=== PATIENT | female | born 1995 | race Caucasian/White ===

== ENCOUNTER 2016-04-21 19:33 | Emergency (ER) | payer BC, OTHER ==
[2016-04-21 19:43] VITALS: BP 102/66; PULSE 96; TEMP 98.7; BMI 17.5
[2016-04-21 20:11] LABS: URINE APPEARANCE SLCLOUDY; URINE BILIRUBIN NEGATIVE (NEGATIVE); URINE BLOOD 1+ (NEGATIVE); URINE COLOR YELLOW; URINE GLUCOSE (UA) NEGATIVE (NEGATIVE); URINE KETONE TRACE (NEGATIVE); URINE LEUK ESTERASE 1+ (NEGATIVE); URINE NITRITE POSITIVE (NEGATIVE); URINE PROTEIN 1+ (NEGATIVE); URINE UROBILINOGEN NEGATIVE E.U./dl (0.2-1.0)
[2016-04-21 20:18] LABS: URINE BACTERIA MODERATE /hpf (NONE SEEN); URINE MUCUS FEW; URINE RBC 27 /hpf (0-3); URINE WBC 104 /hpf (3-5)
--- NOTE | 2016-04-21 20:18 | PDOC ---
History of Present Illness <Elli Krueger Clare - Last Filed: 04/21/16 20:45> - General History Source: Patient Exam Limitations: No Limitations - History of Present Illness Initial Comments: 04/21/16 21:11 The patient is a 21 year old female, with no significant past medical history, who presents to the emergency department with intermittent suprapubic pain since 2013, which was when the patient delivered via . She states that when she experiences the pain, it is located along her incision scar. The patient denies fever, chills, nausea, vomiting, diarrhea, constipation or dysuria. Allergies: None reported. Past Surgical History: Hernia Repair, . Social History: Non smoker. Denies alcohol or drug use. PCP: Dr. Roach <Bree Brown - Last Filed: 04/21/16 21:18> - General Chief Complaint: Pain, Acute Stated Complaint: ABDOMINAL PAIN Time Seen by Provider: 04/21/16 20:16 Past History - Past Medical History Asthma: No Cancer: No Cardiac Disorders: No Diabetes: No HTN: No Seizures: No Thyroid Disease: No - Surgical History Abdominal Surgery: Yes (HERNIA REPAIR) - Immunization History Immunization Up to Date: Yes - Psycho/Social/Smoking Cessation Hx Anxiety: No Suicidal Ideation: No Smoking History: Never smoked Have you smoked in the past 12 months: No Information on smoking cessation initiated: No Hx Alcohol Use: No Drug/Substance Use Hx: No Substance Use Type: None Hx Substance Use Treatment: No <Elli Krueger Clare - Last Filed: 04/21/16 20:45> <Bree Brown - Last Filed: 04/21/16 21:18> - Past Medical History Allergies/Adverse Reactions: Allergies Allergy/AdvReac Type Severity Reaction Status Date / Time No Known Allergies Allergy Verified 04/21/16 19:40 Home Medications: Ambulatory Orders Cephalexin Monohydrate [Keflex -] 500 mg PO Q6H #20 capsule 04/21/16 Ibuprofen [Motrin -] 400 mg PO TID PRN #21 tablet 04/21/16 Review of Systems - Review of Systems Able to Perform ROS?: Yes Comments:: 04/21/16 21:12 CONSTITUTIONAL: Absent: fever, no chills, no fatigue EYES: Absent: visual changes ENT: Absent: ear pain, no sore throat CARDIOVASCULAR: Absent: chest pain, no palpitations RESPIRATORY: Absent: cough, no SOB GI: Present: +Suprapubic pain Absent: no nausea, no vomiting, no constipation, no diarrhea GENITOURINARY: Absent: dysuria, no frequency, no hematuria MUSCULOSKELETAL: Absent: back pain, no arthralgia, no myalgia SKIN: Absent: rash NEURO: Absent: headache <Bree Brown - Last Filed: 04/21/16 21:18> *Physical Exam - Vital Signs Last Vital Signs Temp Pulse Resp BP Pulse Ox 98.7 F 96 H 20 102/66 100 04/21/16 19:41 04/21/16 19:41 04/21/16 19:41 04/21/16 19:41 04/21/16 19:56 <Elli Krueger - Last Filed: 04/21/16 20:45> - Vital Signs Last Vital Signs Temp Pulse Resp BP Pulse Ox 98.7 F 96 H 20 102/66 100 04/21/16 19:41 04/21/16 19:41 04/21/16 19:41 04/21/16 19:41 04/21/16 19:56 - Physical Exam Comments: 04/21/16 21:13 GENERAL: Well-appearing, well-nourished. No apparent distress. HEENT: Normocephalic, atraumatic. PERRL, EOM intact. CARDIOVASCULAR: Regular rate and rhythm. Normal S1, S2. PULMONARY: Lungs clear to auscultation bilaterally. No wheezing, rales or rhonchi. ABDOMEN: Soft, non-distended, non-tender. No rebound or guarding. EXTREMITIES: Normal ROM in all four extremities. No gross deformities. SKIN: incision site is well healed. No seroma. No erythema. No induration. No masses or thickness. Warm, dry. No rash. NEUROLOGICAL: No focal neurological deficits. Moving all extremities purposefully. <Bree Brown - Last Filed: 04/21/16 21:18> ED Treatment Course - ADDITIONAL ORDERS Additional order review: Laboratory Results 04/21/16 20:00 Urine Color Yellow Urine Appearance Slcloudy Urine pH 9.0 H D Ur Specific [place] 1.023 Urine Protein 1+ H Urine Glucose (UA) Negative Urine Ketones Trace H Urine Blood 1+ H Urine Nitrite Positive Urine Bilirubin Negative Urine Urobilinogen Negative Ur Leukocyte Esterase 1+ H <Elli Krueger - Last Filed: 04/21/16 20:45> - ADDITIONAL ORDERS Additional order review: Laboratory Results 04/21/16 20:00 Urine Color Yellow Urine Appearance Slcloudy Urine pH 9.0 H D Ur Specific [place] 1.023 Urine Protein 1+ H Urine Glucose (UA) Negative Urine Ketones Trace H Urine Blood 1+ H Urine Nitrite Positive Urine Bilirubin Negative Urine Urobilinogen Negative Ur Leukocyte Esterase 1+ H Urine RBC 27 Urine WBC 104 Ur Epithelial Cells Rare Urine Bacteria Moderate Urine Mucus Few Urine HCG, Qual Negative - Medications Given in the ED: ED Medications Discontinued Medications Generic Name Dose Route Start Last Admin Trade Name Freq PRN Reason Stop Dose Admin Cephalexin HCl 500 mg 04/21/16 20:42 04/21/16 20:50 Keflex - PO 04/21/16 20:43 500 mg ONCE ONE Administration Ibuprofen 400 mg 04/21/16 20:47 04/21/16 20:50 Motrin - PO 04/21/16 20:48 400 mg ONCE ONE Administration <Bree Brown - Last Filed: 04/21/16 21:18> *DC/Admit/Observation/Transfer <Elli Krueger - Last Filed: 04/21/16 20:45> - Attestations Scribe Attestion: 04/21/16 20:51 Documentation prepared by Bree Brown, acting as medical billing representative for Elli Krueger MD. <Bree Brown - Last Filed: 04/21/16 21:18> Diagnosis at time of Disposition: UTI (urinary tract infection) Qualifiers: Urinary tract infection type: acute cystitis Hematuria presence: without hematuria Qualified Code(s): N30.00 - Acute cystitis without hematuria - Discharge Dispostion Disposition: HOME Condition at time of disposition: Stable - Prescriptions Prescriptions: Cephalexin Monohydrate [Keflex -] 500 mg PO Q6H #20 capsule Ibuprofen [Motrin -] 400 mg PO TID PRN #21 tablet PRN Reason: Pain - Referrals Referrals: Pina Roach MD [Primary Care Provider] - - Patient Instructions Printed Discharge Instructions: DI for Urinary Tract Infection (UTI) Additional Instructions: please steel pickler your antibiotics at [facility] please 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
[2016-04-21] MEDS ORDERED: CEPHALEXIN MONOHYDRATE 500 MG CAPSULE (UD) PO ONE (20:42)
[2016-04-21] MEDS ORDERED: IBUPROFEN 400 MG TABLET (FP) PO ONE ×2 (20:47→20:52)
[2016-04-21] MEDS ORDERED: CEPHALEXIN MONOHYDRATE 250 MG CAPSULE (FP) ONE (20:52)
== END 2016-04-21 20:58 | disposition home or self-care (01) ==
LOC: JER 19:33
DX: N30.00 Acute cystitis without hematuria (principal)
CPT/HCPCS: 81003; 81015; 84703; 99283-25

== ENCOUNTER 2016-05-30 20:17 | Emergency (ER) | payer OTHER ==
[2016-05-30 20:23] VITALS: BP 126/63; PULSE 76; TEMP 97.9; BMI 17.6
[2016-05-30] MEDS ORDERED: OXYCODONE/APAP 5/325MG COMBO TABLET ONE (20:31)
[2016-05-30] MEDS ORDERED: KETOROLAC TROMETHAMINE 60 MG/2 ML VIAL ONE (20:31)
[2016-05-30] MEDS ORDERED: KETOROLAC TROMETHAMINE 30 MG/1 ML VIAL ONE (20:32)
[2016-05-30] MEDS ORDERED: KETOROLAC TROMETHAMINE 60 MG/2 ML VIAL IM ONE (20:34)
[2016-05-30] MEDS ORDERED: OXYCODONE/APAP 5/325MG COMBO TABLET PO ONE (20:34)
--- NOTE | 2016-05-30 20:46 | PDOC ---
History of Present Illness - General Chief Complaint: Toothache Stated Complaint: TOOTHACHE Time Seen by Provider: 05/30/16 20:34 History Source: Patient Exam Limitations: No Limitations - History of Present Illness Initial Comments: 05/30/16 20:43 Patient with extensive endodontal work with braces, multiple teeth needing extraction for realignment. Patient had upper right first molar extracted today and given only Motrin for pain relief. Patient has mildly swollen face, and severe pain to same site. No fevers, no evidence of infection. Timing/Duration: unsure, 4-6 hours Severity: moderate, severe Associated Symptoms: reports: denies symptoms Past History - Travel Traveled outside of the country in the last 30 days: No Close contact w/someone who was outside of country & ill: No - Past Medical History Allergies/Adverse Reactions: Allergies Allergy/AdvReac Type Severity Reaction Status Date / Time No Known Allergies Allergy Verified 05/30/16 20:20 Home Medications: Ambulatory Orders Cephalexin Monohydrate [Keflex -] 500 mg PO Q6H #20 capsule 04/21/16 Ibuprofen [Motrin -] 400 mg PO TID PRN #21 tablet 04/21/16 Oxycodone HCl/Acetaminophen [Percocet 5-325 mg Tablet -] 1 - 2 tab PO Q4H PRN # 6 tablet MDD 4 05/30/16 Asthma: No Cancer: No Cardiac Disorders: No Diabetes: No HTN: No Seizures: No Thyroid Disease: No - Surgical History Abdominal Surgery: Yes (HERNIA REPAIR) - Immunization History Immunization Up to Date: Yes - Psycho/Social/Smoking Cessation Hx Anxiety: No Suicidal Ideation: No Smoking History: Never smoked Have you smoked in the past 12 months: No Number of Cigarettes Smoked Daily: 0 Information on smoking cessation initiated: No Hx Alcohol Use: No Drug/Substance Use Hx: No Substance Use Type: None Hx Substance Use Treatment: No Review of Systems - Review of Systems Able to Perform ROS?: Yes Is the patient limited Solomon Islander proficient: Yes Constitutional: Yes: Symptoms Reported, See HPI, Malaise. No: Fever HEENTM: Yes: Symptoms Reported, See HPI, Mouth Pain, Dental Problems, Mouth Swelling Respiratory: No: Symptoms reported Cardiac (ROS): No: Symptoms Reported Integumentary: No: Symptoms Reported Neurological: Yes: Symptoms reported, See HPI, Headache All Other Systems: Reviewed and Negative *Physical Exam - Vital Signs Last Vital Signs Temp Pulse Resp BP Pulse Ox 97.9 F 76 14 126/63 99 05/30/16 20:20 05/30/16 20:20 05/30/16 20:20 05/30/16 20:20 05/30/16 20:20 - Physical Exam General Appearance: Yes: Nourished, Appropriately Dressed, Apparent Distress, Mild Distress, Moderate Distress HEENT: positive: KATHRINE, Normal ENT Inspection, TMs Normal, Pharynx Normal, Other (right upper molar extraction with clots, no evidence of abscess, no active bleeding, has full range of motion of jaw) Neck: positive: Supple Respiratory/Chest: positive: Lungs Clear Gastrointestinal/Abdominal: positive: Soft Extremity: positive: Normal Capillary Refill, Normal Inspection Integumentary: positive: Normal Color Neurologic: positive: pulp cooker II-XII NML intact, Fully Oriented, Alert, Normal Mood/ Affect, Normal Response, Motor Strength / ED Treatment Course - Medications Given in the ED: ED Medications Discontinued Medications Generic Name Dose Route Start Last Admin Trade Name Tristenq PRN Reason Stop Dose Admin Ketorolac Tromethamine 60 mg 05/30/16 20:34 05/30/16 20:36 Toradol Injection - IM 05/30/16 20:35 60 mg ONCE ONE Administration Oxycodone/Acetaminophen 2 combo 05/30/16 20:34 05/30/16 20:36 Percocet 5/325 - PO 05/30/16 20:35 2 combo ONCE ONE Administration Medical Decision Making - Medical Decision Making 05/30/16 20:45 Status post dental extraction, given dose of IM Toradol 60 mg and provided 2 Percocet tablets. 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 instructor in economics *DC/Admit/Observation/Transfer Diagnosis at time of Disposition: Pain, dental - Discharge Dispostion Disposition: HOME Condition at time of disposition: Stable Admit: No - Prescriptions Prescriptions: Oxycodone HCl/Acetaminophen [Percocet 5-325 mg Tablet -] 1 - 2 tab PO Q4H PRN # 6 tablet MDD 4 PRN Reason: Pain - Patient Instructions Printed Discharge Instructions: DI for Dental Pain Additional Instructions: Rest, drink lots of fluids: Teas, water, soups Saltwater gargles/ keep mouth clean and rinse after each meal May use wet teabag for pain relief to area May use Orajel for pain relief Avoid hard chewing foods, stick to ice cream, Jell-O, yogurt etc. Tylenol or Motrin for fever and pain Complete all medication as prescribed May use one or 2 tablets of Percocet for severe pain Seek dental appointment as soon as possible for evaluation of dental injury/pain Followup with private physician in one to 2 days as needed Return to emergency department for worsened symptoms, fevers, swelling to face or worsened pain - Post Discharge Activity Work/School Note: Back to Work
== END 2016-05-30 20:46 | disposition home or self-care (01) ==
LOC: JERFT 20:17
PROC: 3E0233Z Introduction of Anti-inflammatory into Muscle, Percutaneous Approach (ICD-10-PCS; principal; 2016-05-30)
DX: K08.89 Other specified disorders of teeth and supporting structures (principal)
CPT/HCPCS: 99281-25

== ENCOUNTER 2017-01-30 07:10 | Emergency (ER) | payer OTHER ==
[2017-01-30 07:38] VITALS: BP 103/60; PULSE 80; TEMP 98.5; BMI 18.1
--- NOTE | 2017-01-30 08:03 | PDOC ---
History of Present Illness - General Chief Complaint: Pain, Acute Stated Complaint: STOMACH PAIN Time Seen by Provider: 01/30/17 08:01 History Source: Patient Exam Limitations: No Limitations - History of Present Illness Initial Comments: 01/30/17 08:02 Patient is a 21 year old female with history of abdominal pain following c- section in 2013 presenting with lower abdominal pain for one day. Patient was woken from her sleep this morning with 8/10 crampy lower abdominal pain and nausea. The pain did not migrate, does not radiate and was not relieved with Motrin taken an hour before coming to the emergency department. Pain is worse when sitting and slightly relieved when lying down. Patient had similar symptoms several times since her . The last was 10 months ago when she had a negative workup for an appendicitis. Patient endorses difficulty with wound healing after her including dehiscence and abnormal scaring. Patient denies fever, chills, recent illness, sore throat, shortness of breath, chest pain, vomiting, diarrhea, constipation, dysurea, vaginal discharge, rashes and bruises. Denies recent travel and endorses sick contacts. Last meal was 8pm last night and last bowel movement was last night and normal. Patient is sexually active. LMP was 01/08 and patient is regular between the 25 and 28. Patient does not take OCP and cannot rule out . Denies amoking, EtoH and illicit drug use. PCP Dr. Roach Past History - Past Medical History Allergies/Adverse Reactions: Allergies Allergy/AdvReac Type Severity Reaction Status Date / Time No Known Allergies Allergy Verified 01/30/17 07:34 Home Medications: Ambulatory Orders Cephalexin [Keflex] 500 mg PO BID #10 capsule 01/30/17 Asthma: No Cancer: No Cardiac Disorders: No Diabetes: No HTN: No Seizures: No Thyroid Disease: No Other medical history: DENIES - Surgical History Abdominal Surgery: Yes (HERNIA REPAIR) - Immunization History Immunization Up to Date: Yes - Suicide/Smoking/Psychosocial Hx Smoking History: Never smoked Have you smoked in the past 12 months: No Number of Cigarettes Smoked Daily: 0 Hx Alcohol Use: No Drug/Substance Use Hx: No Substance Use Type: None Hx Substance Use Treatment: No Review of Systems - Review of Systems Able to Perform ROS?: Yes Comments:: GEN: Denies fever, chills, recent illness HEENTM: Denies sore throat, neck pain, changes in vision, changes in hearing, ear pain, tinnitus Respiratory: Denies cough, wheezing, shortness of breath Cardiac: Denies chest pain, palpitations, lightheadedness, diaphoresis ABD/GI: +abdominal pain, +nausea; Denies vomiting, diarrhea, constipation : Denies dysuria, burning on urination, increased frequency of urination Musculoskeletal: Denies pain and swelling of muscles and joints Integumentary: Denies rashes, bruises Neurological: Denies JEWELL, weakness, dizziness, loss of consciousness, tingling, numbness Hematologic/Lymphatic: Denies anemia, easy bleeding, history of blood clots. All Other Systems Reviewed and Negative Is the patient limited Azeri proficient: No *Physical Exam - Vital Signs Last Vital Signs Temp Pulse Resp BP Pulse Ox 98.5 F 80 19 103/60 100 01/30/17 07:34 01/30/17 07:34 01/30/17 07:34 01/30/17 07:34 01/30/17 07:34 - Physical Exam Comments: GENERAL: AAOx3, nourished and generally well appearing, NAD HEAD: NCAT EYES: PERRLA, EOMI, sclera anicteric, conjunctiva clear ENT: Auricles normal inspection, hearing grossly normal, nares patent, no nasal discharge, no congestion, oropharynx clear without exudates, MMM NECK: supple, normal ROM, no LAD, no JVD, no masses RESP: speaking in full sentences, lungs CTAB, symmetrical chest expansion, no respiratory distress HEART: RRR, normal S1-S2, no MRG, peripheral pulses normal and equal bilaterally ABDOMEN: soft, non-distended, nlBSx4, lower abdomen exquisitely ttp RLQ> periumbilical>suprapubic, no guarding, no rebound, no masses, (+)McBurney's sign , (-)Rovsing's sign, (-)psoas sign, (-)obturator sign, (-)Heel tap sign PELVIC: external exam wnl, cervical os closed, no adnexal tenderness, normal size ovaries, significant white watery discharge in the vaginal vault, no vaginal bleeding, no cervical tenderness, non-friable cervical tissue MUSCULOSKELETAL: no CVA Tenderness EXTREMITIES: normal inspection, moving all extremities, full ROM, strength 5/5, sensation grossly intact NEUROLOGICAL: CN II-XII grossly intact, normal speech, normal gait, no focal sensorimotor deficits SKIN: warm, dry, normal turgor, no rashes or lesions noted. ED Treatment Course - LABORATORY CBC & Chemistry Diagram: 01/30/17 08:30 01/30/17 08:30 - RADIOLOGY Radiograph Interpretation: [id number] US/TRANSVAGINAL ULTRASOUND US Pelvic ultrasound transvaginal ultrasound Clinical information: evaluate for right-sided torsion The exams were performed utilizing transvaginal and transabdominal scanning. The ovaries appear unremarkable demonstrating several subcentimeter follicles bilaterally. There is no Doppler evidence of ovarian torsion, sensitivity 70%. No free intraperitoneal fluid is seen. The uterus appears unremarkable in overall size and echotexture. Endometrial thickness demonstrates no definite abnormality measuring 0.7 cm. IMPRESSION: Negative exam. No sonographic abnormality is identified. Medical Decision Making - Medical Decision Making 01/30/17 09:27 21 yo female with history of abdominal pain and nausea s/p Ddx includes but is not limited to ectopic, torsion, PID, appendicitis, TOA Pain control CBC/CMP UA Doppler 01/30/17 11:18 Pelvic exam performed with pick up worker Tiffanie No cervical motion tenderness, no adinexal tenderness CBC WBC 7.2 K/mm3 (4.0-10.0) D 01/30/17 08:30 RBC 4.38 M/mm3 (3.60-5.2) 01/30/17 08:30 Hgb 11.5 GM/dL (10.7-15.3) 01/30/17 08:30 Hct 35.1 % (32.4-45.2) 01/30/17 08:30 MCV 80.2 fl (80-96) 01/30/17 08:30 MCH 26.2 pg (25.7-33.7) D 01/30/17 08:30 MCHC 32.6 g/dl (32.0-36.0) 01/30/17 08:30 RDW 16.6 % (11.6-15.6) H D 01/30/17 08:30 Plt Count 277 K/MM3 (134-434) 01/30/17 08:30 MPV 9.0 fl (7.5-11.1) 01/30/17 08:30 Neutrophils % 76.2 % (42.8-82.8) 01/30/17 08:30 Lymphocytes % 14.3 % (8-40) D 01/30/17 08:30 Monocytes % 8.5 % (3.8-10.2) D 01/30/17 08:30 Eosinophils % 0.4 % (0-4.5) 01/30/17 08:30 Basophils % 0.6 % (0-2.0) 01/30/17 08:30 reviewed CMP Sodium 139 mmol/L (136-145) 01/30/17 08:30 Potassium 3.9 mmol/L (3.5-5.1) 01/30/17 08:30 Chloride 104 mmol/L (98-107) 01/30/17 08:30 Carbon Dioxide 28 mmol/L (21-32) 01/30/17 08:30 Anion Gap 7 (8-16) L 01/30/17 08:30 BUN 7 mg/dL (7-18) D 01/30/17 08:30 Creatinine 0.6 mg/dL (0.55-1.02) 01/30/17 08:30 Creat Clearance w eGFR > 60 (>60) 01/30/17 08:30 Random Glucose 84 mg/dL (74-106) D 01/30/17 08:30 Calcium 9.1 mg/dL (8.5-10.1) 01/30/17 08:30 Total Bilirubin 0.4 mg/dL (0.2-1.0) D 01/30/17 08:30 AST 20 U/L (15-37) D 01/30/17 08:30 ALT 18 U/L (12-78) D 01/30/17 08:30 Alkaline Phosphatase 81 U/L (45-117) 01/30/17 08:30 Total Protein 6.8 g/dl (6.4-8.2) 01/30/17 08:30 Albumin 3.8 g/dl (3.4-5.0) 01/30/17 08:30 reviewed Urine Test Results Urine Color Straw 01/30/17 08:30 Urine Appearance Clear 01/30/17 08:30 Urine pH 7.0 (5.0-8.0) D 01/30/17 08:30 Urine Protein Negative (NEGATIVE) 01/30/17 08:30 Urine Glucose (UA) Negative (NEGATIVE) 01/30/17 08:30 Urine Ketones Negative (NEGATIVE) 01/30/17 08:30 Urine Blood 1+ (NEGATIVE) H 01/30/17 08:30 Urine Nitrite Negative (NEGATIVE) 01/30/17 08:30 Urine Bilirubin Negative (NEGATIVE) 01/30/17 08:30 Urine RBC <1 /hpf (0-3) 01/30/17 08:30 Urine WBC 9 /hpf (3-5) 01/30/17 08:30 Ur Epithelial Cells Rare /hpf (FEW) 01/30/17 08:30 reviewed Mildly positive for uti US shown no sonographic abnormalities Patient's pain is resolved, is afebrile with reassuring labs and PO tolerant with no other complaints and a low suspicion for appendicitis at this time. Strict return precautions given for discharge home and patient expressed understanding and agreement with the plan Initial does of antibiotics for UTI given in ED and prescription sent to pharmacy. *DC/Admit/Observation/Transfer Diagnosis at time of Disposition: UTI (urinary tract infection) Qualifiers: Urinary tract infection type: site unspecified Hematuria presence: without hematuria Qualified Code(s): N39.0 - Urinary tract infection, site not specified - Discharge Dispostion Disposition: HOME Condition at time of disposition: Improved Admit: No - Prescriptions Prescriptions: Cephalexin [Keflex] 500 mg PO BID #10 capsule - Referrals Referrals: Pina Roach MD [Primary Care Provider] - - Patient Instructions Printed Discharge Instructions: DI for Urinary Tract Infection (UTI) Additional Instructions: A prescription for an antibiotic has been sent to your pharmacy you need to take one tablet twice a day until you have finished all the medication If your pain returns, you can take Motrin 600 mg every 6 hours with food. If you are unable to control your pain, please return to the emergency department. You should also return if you develop any new or worsening symptoms including fever or severe nausea or vomiting. Print Language: SAMI - Post Discharge Activity Forms/Work/School Notes: Back to Work
[2017-01-30 08:56] LABS: URINE APPEARANCE CLEAR; URINE BILIRUBIN NEGATIVE (NEGATIVE); URINE BLOOD 1+ (NEGATIVE); URINE COLOR STRAW; URINE GLUCOSE (UA) NEGATIVE (NEGATIVE); URINE KETONE NEGATIVE (NEGATIVE); URINE NITRITE NEGATIVE (NEGATIVE); URINE PROTEIN NEGATIVE (NEGATIVE); URINE UROBILINOGEN NEGATIVE mg/dL (0.2-1.0)
[2017-01-30 08:58] LABS: BASOPHIL 0.6 % (0-2.0); EOSINOPHIL 0.4 % (0-4.5); MCH 26.2 pg (25.7-33.7); MCHC 32.6 g/dl (32.0-36.0); MEAN CELL VOLUME 80.2 fl (80-96); NEUTROPHILS 76.2 % (42.8-82.8); PLATELET COUNT 277 K/MM3 (134-434); RDW 16.6 % (11.6-15.6); WHITE BLOOD COUNT 7.2 K/mm3 (4.0-10.0)
--- NOTE | 2017-01-30 08:59 | PDOC ---
Attending Attestation - Resident Resident Name: Joseph Reis - ED Attending Attestation I have performed the following: I have examined & evaluated the patient, The case was reviewed & discussed with the resident, I agree w/resident's findings & plan, Exceptions are as noted - HPI HPI: 01/30/17 17:06 21-year-old female complains of atraumatic lower abdominal pain at the site of the incision site - Physicial Exam PE: 01/30/17 17:06 Patient is awake and alert, afebrile, nontoxic appearing; perrla, eomi, no icterus cta rrr sft, nd, + mild suprapubic/right lower pelvic ttp, no mcburneys ttp, no cva ttp no cmt as per dr. reis - Medical Decision Making 01/30/17 17:07 21-year-old female presents with lower abdominal pain. CBC/CMP within normal limit. UA reveals 9 white cells per high-power field consistent with UTI. Patient received IV Toradol with complete resolution of her pain. Repeat exam revealed no right lower quadrant or right lower pelvic tenderness to palpation. Patient tolerated pedis and which in the ER. I do not suspect acute appendicitis. Will discharge.
[2017-01-30] MEDS ORDERED: KETOROLAC TROMETHAMINE 15 MG/ML VIAL IVPUSH ONE (09:14)
[2017-01-30] MEDS ORDERED: KETOROLAC TROMETHAMINE 15 MG/ML VIAL ONE (09:19)
[2017-01-30 09:28] LABS: ALBUMIN 3.8 g/dl (3.4-5.0); ANION GAP 7 (8-16); BILIRUBIN,TOTAL 0.4 mg/dL (0.2-1.0); CALCIUM 9.1 mg/dL (8.5-10.1); CO2 28 mmol/L (21-32); CREATININE 0.6 mg/dL (0.55-1.02); GLUCOSE,RANDOM 84 mg/dL (74-106); SGOT/AST 20 U/L (15-37); SGPT/ALT 18 U/L (12-78); TOT PROT 6.8 g/dl (6.4-8.2)
[2017-01-30 09:29] LABS: ALK PHOS 81 U/L (45-117)
[2017-01-30 09:47] LABS: URINE RBC <1 /hpf (0-3); URINE WBC 9 /hpf (3-5)
[2017-01-30] MEDS ORDERED: CEPHALEXIN MONOHYDRATE 500 MG CAPSULE (UD) PO ONE (11:35)
[2017-01-30] MEDS ORDERED: CEPHALEXIN MONOHYDRATE 250 MG CAPSULE (FP) ONE (11:41)
[2017-01-30 15:30] LABS: URINE LEUK ESTERASE 3+ (NEGATIVE)
== END 2017-01-30 11:52 | disposition home or self-care (01) ==
LOC: JER 07:10
PROC: 3E0333Z Introduction of Anti-inflammatory into Peripheral Vein, Percutaneous Approach (ICD-10-PCS; principal; 2017-01-30)
DX: N39.0 Urinary tract infection, site not specified (principal)
CPT/HCPCS: 36415; 76830-TC; 76856-TC; 80053; 81003; 81015; 84703; 85025; 87491; 87591; 99283-25

== ENCOUNTER 2017-05-27 09:46 | Emergency (ER) | payer OTHER ==
[2017-05-27 09:56] VITALS: BP 106/52; PULSE 88; TEMP 98.4; BMI 17.6
--- NOTE | 2017-05-27 11:29 | PDOC ---
History of Present Illness - General Chief Complaint: Cold Symptoms Stated Complaint: R/O FLU Time Seen by Provider: 05/27/17 11:20 History Source: Patient Exam Limitations: No Limitations - History of Present Illness Initial Comments: 05/27/17 11:24 Patient is a [22-year-old female, no significant medical history currently on no medication woke up today with body aches, cough, fever. Sudden onset. No nausea vomiting or diarrhea. Took Tylenol prior to arrival.] Past Medical History: [Denies]. Allergies: No known allergies Medications: [None] Family History: Non-contributory Social History: Denies smoking, alcohol use, or IVDU Vital signs on arrival are [notable for pulse of 96.] Review of Systems GENERAL/CONSTITUTIONAL: [Fever and chills, bodyaches No weakness. No weight change.] HEAD, EYES, EARS, NOSE AND THROAT: [No change in vision. No ear pain or discharge. No sore throat. ] CARDIOVASCULAR: [No chest pain or shortness of breath.] RESPIRATORY: [Moist cough, no wheezing, or hemoptysis.] GASTROINTESTINAL: [No nausea, vomiting, diarrhea or constipation. No rectal bleeding.] GENITOURINARY: [No dysuria, frequency, or change in urination.] MUSCULOSKELETAL: [No joint or muscle swelling or pain. No neck or back pain.] SKIN : [No rash or easy bruising.] NEUROLOGIC: + headache, vertigo, loss of consciousness, or loss of sensation.] Physical Exam: GENERAL: [The patient is awake, alert, and fully oriented, in no acute distress. ] EYES: [Pupils equal, round and reactive to light, extraocular movements intact, sclera anicteric, conjunctiva clear.] ENT: [Ears normal, nares patent, oropharynx clear without exudates. Moist mucous membranes. No uvula deviation] NECK: [Normal range of motion, supple without lymphadenopathy, JVD, or masses.] LUNGS: [Breath sounds equal, clear to auscultation bilaterally. Wheezing and rhonchi, no crackles. Wheezing cleared with cough] HEART: [Regular rate and rhythm, normal S1 and S2 without murmur, rub or gallop. ] ABDOMEN: [Soft, nontender, normoactive bowel sounds. No guarding, no rebound. No masses. No bruising or abrasions] MUSCULOSKELETAL: [Normal range of motion, no edema. No clubbing or cyanosis. No cords, erythema, or tenderness. No CVA Tenderness with fist.] NEUROLOGICAL: [Cranial nerves II through XII grossly intact. Normal speech, normal gait.] SKIN: [Warm, Dry, normal turgor, no rashes or lesions noted.] Past History - Past Medical History Allergies/Adverse Reactions: Allergies Allergy/AdvReac Type Severity Reaction Status Date / Time No Known Allergies Allergy Verified 05/27/17 09:53 Home Medications: Ambulatory Orders Albuterol Sulfate Inhaler - [Ventolin HFA Inhaler -] 1 - 2 inh PO Q4H #1 inhaler 05/27/17 Azithromycin [Zithromax 250mg Tablets -] 250 mg PO UTDICT #6 tab 05/27/17 Oseltamivir Phosphate [Tamiflu -] 75 mg PO BID #10 capsule 05/27/17 Asthma: No Cancer: No Cardiac Disorders: No COPD: No Diabetes: No HTN: No Seizures: No Thyroid Disease: No - Surgical History Abdominal Surgery: Yes (HERNIA REPAIR) - Immunization History Immunization Up to Date: Yes - Suicide/Smoking/Psychosocial Hx Smoking History: Never smoked Have you smoked in the past 12 months: No Number of Cigarettes Smoked Daily: 0 Information on smoking cessation initiated: No Hx Alcohol Use: No Drug/Substance Use Hx: No Substance Use Type: None Hx Substance Use Treatment: No *Physical Exam - Vital Signs Last Vital Signs Temp Pulse Resp BP Pulse Ox 98.4 F 88 18 106/52 100 05/27/17 09:53 05/27/17 09:53 05/27/17 09:53 05/27/17 09:53 05/27/17 09:53 Medical Decision Making - Medical Decision Making 05/27/17 11:26 A/P: Patient with influenza-type illness, upper respiratory infection will DC on Tamiflu and azithromycin, follow-up with PMD increase fluid intake, Motrin and Tylenol as needed for fever *DC/Admit/Observation/Transfer Diagnosis at time of Disposition: Influenza-like illness Upper respiratory infection Qualifiers: URI type: unspecified URI Qualified Code(s): J06.9 - Acute upper respiratory infection, unspecified - Discharge Dispostion Disposition: HOME Condition at time of disposition: Stable Admit: No - Prescriptions Prescriptions: Albuterol Sulfate Inhaler - [Ventolin HFA Inhaler -] 1 - 2 inh PO Q4H #1 inhaler Azithromycin [Zithromax 250mg Tablets -] 250 mg PO UTDICT #6 tab Oseltamivir Phosphate [Tamiflu -] 75 mg PO BID #10 capsule - Referrals Referrals: Pina Roach MD [Primary Care Provider] - - Patient Instructions Printed Discharge Instructions: Influenza Additional Instructions: You have been diagnosed with influenza-like illness. Please take the medication as directed. You are contagious. Please attempt to avoid contact of multiple individuals as this will cause the infection to spread. Return to emergency room if shortness of breath, wheezing, fever greater than 101, chest pain, or fainting occurs. - Post Discharge Activity Forms/Work/School Notes: Back to Work
== END 2017-05-27 11:31 | disposition home or self-care (01) ==
LOC: JERFT 09:46
DX: J11.1 Influenza due to unidentified influenza virus with other respiratory manifestations (principal)
CPT/HCPCS: 99281-25

== ENCOUNTER 2017-07-03 11:18 | Emergency (ER) | payer OTHER ==
[2017-07-03 11:27] VITALS: BP 125/82; PULSE 99; TEMP 98; BMI 18.1
[2017-07-03] MEDS ORDERED: LIDOCAINE VISCOUS 2% ORAL/TOP 20 ML UNIT-DOSE CUP MM ONE (11:56)
[2017-07-03] MEDS ORDERED: LIDOCAINE VISCOUS 2% ORAL/TOP 20 ML UNIT-DOSE CUP ONE (12:04)
--- NOTE | 2017-07-03 12:20 | PDOC ---
History of Present Illness - General Chief Complaint: Sore Throat Stated Complaint: SORE THROAT Time Seen by Provider: 07/03/17 11:27 History Source: Patient Exam Limitations: No Limitations - History of Present Illness Initial Comments: 07/03/17 12:16 22-year-old female presents to the ED with complaints of sore throat without fever, chills but states was seen by her PCP 3 days ago started her on amoxicillin with the diagnosis of tonsillitis but states the Tylenol that he gave her for the pain does not seem to alleviate her discomfort stating pain is worsened when eating solids. patient denies change in voice, excessive drooling , or neck stiffness. Timing/Duration: reports: other Severity: reports: mild Associated Symptoms: reports: sore throat Past History - Past Medical History Allergies/Adverse Reactions: Allergies Allergy/AdvReac Type Severity Reaction Status Date / Time No Known Allergies Allergy Verified 07/03/17 11:24 Home Medications: Ambulatory Orders NK [No Known Home Medication] 05/27/17 Asthma: No Cancer: No Cardiac Disorders: No COPD: No Diabetes: No HTN: No Seizures: No Thyroid Disease: No Other medical history: DENIES. - Surgical History Abdominal Surgery: Yes (HERNIA REPAIR) - Immunization History Immunization Up to Date: Yes - Suicide/Smoking/Psychosocial Hx Smoking History: Never smoked Have you smoked in the past 12 months: No Number of Cigarettes Smoked Daily: 0 Hx Alcohol Use: No Drug/Substance Use Hx: No Substance Use Type: None Hx Substance Use Treatment: No Patient Lives Alone: No Review of Systems - Review of Systems Able to Perform ROS?: Yes Constitutional: No: Symptoms Reported HEENTM: Yes: Throat Pain Respiratory: No: Symptoms reported Cardiac (ROS): No: Symptoms Reported ABD/GI: No: Symptoms Reported : No: Symptoms Reported Musculoskeletal: No: Symptoms Reported Integumentary: No: Symptoms Reported Neurological: No: Symptoms reported *Physical Exam - Vital Signs Last Vital Signs Temp Pulse Resp BP Pulse Ox 98 F 99 H 17 125/82 100 07/03/17 11:24 07/03/17 11:24 07/03/17 11:24 07/03/17 11:24 07/03/17 11:24 - Physical Exam General Appearance: Yes: Nourished, Appropriately Dressed. No: Apparent Distress HEENT: positive: Normal Voice. negative: Pharyngeal Erythema, Tonsillar Exudate , Tonsillar Erythema, Excessive drooling Neck: positive: Supple. negative: Lymphadenopathy (R), Lymphadenopathy (L) Respiratory/Chest: positive: Lungs Clear, Normal Breath Sounds. negative: Respiratory Distress, Accessory Muscle Use Cardiovascular: positive: Regular Rhythm, Regular Rate. negative: Murmur Integumentary: positive: Normal Color, Warm, Moist Neurologic: positive: Motor Strength 5/5 (ambulatory) ED Treatment Course - Medications Given in the ED: ED Medications Discontinued Medications Generic Name Dose Route Start Last Admin Trade Name Tristenq PRN Reason Stop Dose Admin Lidocaine HCl 10 ml 07/03/17 11:56 07/03/17 12:06 Xylocaine 2% Viscous Oral - MM 07/03/17 11:57 10 ml ONCE ONE Administration Medical Decision Making - Medical Decision Making 07/03/17 12:20 Patient here with subjective complaints of sore throat despite taking Tylenol for the above. Patient also on amoxicillin day 3 secondary to tonsillitis. Patient exam had no acute findings. Patient ordered for viscous lidocaine. Will discharge home with Chloraseptic Martha. *DC/Admit/Observation/Transfer Diagnosis at time of Disposition: Throat pain - Discharge Dispostion Disposition: HOME Condition at time of disposition: Improved - Referrals Referrals: Pina Roach MD [Primary Care Provider] - - Patient Instructions Printed Discharge Instructions: Sore Throat Additional Instructions: At this time I recommend eating soft not abrasive food sticking plenty of fluids. May use Chloraseptic spray as needed for discomfort. Continue with antibiotics. - Post Discharge Activity
== END 2017-07-03 12:26 | disposition home or self-care (01) ==
LOC: JERFT 11:18
DX: J03.90 Acute tonsillitis, unspecified (principal)
CPT/HCPCS: 99281-25

== ENCOUNTER 2017-10-08 12:11 | Emergency (ER) | payer OTHER ==
[2017-10-08 12:26] VITALS: BP 108/54; PULSE 92; TEMP 99; BMI 17.7
--- NOTE | 2017-10-08 12:59 | PDOC ---
History of Present Illness - General Chief Complaint: Cold Symptoms Stated Complaint: FLU LIKE SYMPTOMS - History of Present Illness Initial Comments: 22-year-old female presents for evaluation of cough and chest congestion 3 days. She also has a sore throat. She denies fever chills or night sweats. 10/08/17 12:57 Past History - Past Medical History Allergies/Adverse Reactions: Allergies Allergy/AdvReac Type Severity Reaction Status Date / Time No Known Allergies Allergy Verified 10/08/17 12:23 Home Medications: Ambulatory Orders Budesonide [Rhinocort Allergy] 1 spray NS ONCE #1 spray.pump 10/08/17 Cetirizine HCl/Pseudoephedrine [Zyrtec-D Tablet] 1 each PO DAILY #30 tab.er.12h 10/08/17 Asthma: No Cancer: No Cardiac Disorders: No COPD: No Diabetes: No HTN: No Seizures: No Thyroid Disease: No - Surgical History Abdominal Surgery: Yes (HERNIA REPAIR) - Immunization History Immunization Up to Date: Yes - Suicide/Smoking/Psychosocial Hx Smoking History: Never smoked Have you smoked in the past 12 months: No Number of Cigarettes Smoked Daily: 0 Information on smoking cessation initiated: No Hx Alcohol Use: No Drug/Substance Use Hx: No Substance Use Type: None Hx Substance Use Treatment: No Review of Systems - Review of Systems HEENTM: Yes: Throat Pain Respiratory: Yes: Cough All Other Systems: Reviewed and Negative *Physical Exam - Vital Signs Last Vital Signs Temp Pulse Resp BP Pulse Ox 99.0 F 92 H 15 108/54 99 10/08/17 12:23 10/08/17 12:23 10/08/17 12:23 10/08/17 12:23 10/08/17 12:23 - Physical Exam Comments: GENERAL: The patient is awake, alert, and fully oriented, in no acute distress. HEAD: Normal with no signs of trauma. EYES: Pupils equal, round and reactive to light, extraocular movements intact, sclera anicteric, conjunctiva clear. ENT: Ears normal, nares patent, oropharynx injected without exudates. Moist mucous membranes. NECK: Normal range of motion, supple with lymphadenopathy, JVD, or masses. LUNGS: Breath sounds equal, clear to auscultation bilaterally. No wheezes, and no crackles. HEART: Regular rate and rhythm, normal S1 and S2 without murmur, rub or gallop. ABDOMEN: Soft, nontender, normoactive bowel sounds. No guarding, no rebound. No masses. EXTREMITIES: Normal range of motion, no edema. No clubbing or cyanosis. No cords, erythema, or tenderness. NEUROLOGICAL: Cranial nerves II through XII grossly intact. Normal speech, normal gait. PSYCH: Normal mood, normal affect. SKIN: Warm, Dry, normal turgor, no rashes or lesions noted. 10/08/17 12:58 Medical Decision Making - Medical Decision Making She feels like she has the flu she states she wants a flu test. Her pharynx was injected I also did a rapid strep test. I will await the results. 10/08/17 12:59 10/08/17 13:39 FLu swab and rapid strep was negative cx was sent. *DC/Admit/Observation/Transfer Diagnosis at time of Disposition: Seasonal allergic rhinitis - Discharge Dispostion Disposition: HOME Condition at time of disposition: Stable Decision to Admit order: No - Referrals - Patient Instructions Printed Discharge Instructions: Allergic Rhinitis Additional Instructions: Your rapid strep test and flu swab was negative today this could be ALLERGIES I prescribed few an antihistamine with decongestant as well is a nasal spray. Please take the medication as prescribed. Return to the emergency room should her symptoms worsen or go unresolved and follow-up with her primary care physician within the next 1-2 days for further evaluation and treatment options. - Post Discharge Activity
== END 2017-10-08 13:43 | disposition home or self-care (01) ==
LOC: JERFT 12:11
DX: J30.2 Other seasonal allergic rhinitis (principal)
CPT/HCPCS: 87070; 87430; 87804; 99281-25

== ENCOUNTER 2018-03-06 15:04 | Emergency (ER) | payer OTHER ==
[2018-03-06 15:09] VITALS: BP 94/46; PULSE 79; TEMP 98.1; BMI 18.6
--- NOTE | 2018-03-06 15:09 | PDOC ---
Rapid Medical Evaluation Medical Evaluation: Allergies Allergy/AdvReac Type Severity Reaction Status Date / Time No Known Allergies Allergy Verified 03/06/18 15:06 03/06/18 15:07 I have performed a brief in-person evaluation of this patient. The patient presents with a chief complaint of: R thumb pain 22 y/o F with R thumb pain after trying to take off shoe for her child; states she extended her thumb too much during this and now has pain on movement of her thumb. PE with minimal swelling of R thumb and pain with extension/flexion of R thumb Will order UCG; consider X-ray of R hand Possible gamekeeper's thumb The patient will proceed to the ED for further evaluation. 03/06/18 15:10 Discharge Disposition - Referrals Referrals: Ziyad Roach MD [Primary Care Provider] - - Patient Instructions - Post Discharge Activity
--- NOTE | 2018-03-06 16:22 | PDOC ---
History of Present Illness - General Chief Complaint: Injury Stated Complaint: INJURY Time Seen by Provider: 03/06/18 15:58 History Source: Patient Exam Limitations: Clinical Condition - History of Present Illness Initial Comments: 03/06/18 16:15 Patient with no significant past medication present with complaint of right thumb pain status post strain in right thumb while wearing boots of her child and hyperextending right humb last night. patient did not take anything for pain Timing/Duration: 24 hours Past History - Past Medical History Allergies/Adverse Reactions: Allergies Allergy/AdvReac Type Severity Reaction Status Date / Time No Known Allergies Allergy Verified 03/06/18 15:06 Home Medications: Ambulatory Orders Amoxicillin - [Amoxicillin 250mg Capsule -] 250 mg PO TID 03/06/18 Arm Brace [Wrist Brace] 1 each MC DAILY #1 each 03/06/18 Ibuprofen 800 mg PO Q8H PRN #20 tablet 03/06/18 Ibuprofen [Motrin -] 400 mg PO QID 03/06/18 Asthma: No Cancer: No Cardiac Disorders: No COPD: No Diabetes: No HTN: No Seizures: No Thyroid Disease: No - Surgical History Abdominal Surgery: Yes (HERNIA REPAIR) - Immunization History Immunization Up to Date: Yes - Suicide/Smoking/Psychosocial Hx Smoking History: Never smoked Have you smoked in the past 12 months: No Number of Cigarettes Smoked Daily: 0 Hx Alcohol Use: No Drug/Substance Use Hx: No Substance Use Type: None Hx Substance Use Treatment: No Review of Systems - Review of Systems Able to Perform ROS?: Yes Is the patient limited German proficient: No Constitutional: No: Weakness Respiratory: No: Symptoms reported Cardiac (ROS): No: Symptoms Reported ABD/GI: No: Symptoms Reported Musculoskeletal: Yes: Joint Pain (right thumb), Muscle Pain (right thumb). No: Joint Swelling, Muscle Weakness, Joint Stiffness All Other Systems: Reviewed and Negative *Physical Exam - Vital Signs Last Vital Signs Temp Pulse Resp BP Pulse Ox 98.1 F 79 18 94/46 L 98 03/06/18 15:06 03/06/18 15:06 03/06/18 15:06 03/06/18 15:06 03/06/18 15:06 - Physical Exam Comments: 03/06/18 16:18 GENERAL: Well developed, well nourished. Awake and alert. No acute distress. CARDIOVASCULAR: Regular rate and rhythm. No murmurs, rubs, or gallops. PULMONARY: No evidence of respiratory distress. Lungs clear to auscultation bilaterally. No wheezing, rales or rhonchi. ABDOMINAL: Soft. Non-tender. Non-distended. No rebound or guarding. No organomegaly. Normoactive bowel sounds MUSCULOSKELETAL : moderate tenderness over MCP and proximal phalange of right thumb. No bony deformities EXTREMITIES: No cyanosis. No clubbing. No edema. No calf tenderness. SKIN: Warm and dry. no erythema NEUROLOGICAL: Alert, awake, appropriate. No motor deficits in the lower extremities. Gait is normal without ataxia. PSYCHIATRIC: Cooperative. Good eye contact. Appropriate mood and affect. General Appearance: Yes: Nourished, Appropriately Dressed. No: Apparent Distress ED Treatment Course - ADDITIONAL ORDERS Additional order review: Laboratory Results 03/06/18 15:25 Urine HCG, Qual Negative - RADIOLOGY Radiology Studies Ordered: Category Date Time Status FINGER(S) RIGHT [RAD] Stat Radiology 03/06/18 16:05 Ordered WRIST W/HAND-RIGHT* [RAD] Stat Radiology 03/06/18 16:05 Ordered Medical Decision Making - Medical Decision Making 03/06/18 16:19 Patient with no syndrome past medication present with complaint of right thumb pain status post spraining thumb while trying to put on boots on. exam significant to mederate tenderness to MCP of right thumb. x-rays of right thumb and hand ordered. treat based on imaging results 03/06/18 16:40 x-ray of right hand and thumb shows no acute fracture. symptoms likely thumb sprain . patient stable for discharge on NSAIDS with orthopedics follow-up *DC/Admit/Observation/Transfer Diagnosis at time of Disposition: Sprain of hand, thumb, right Qualifiers: Encounter type: initial encounter Sprain of finger site: metacarpophalangeal joint Qualified Code(s): S63.641A - Sprain of metacarpophalangeal joint of right thumb, initial encounter - Discharge Dispostion Disposition: HOME Condition at time of disposition: Stable Decision to Admit order: No - Prescriptions Prescriptions: Arm Brace [Wrist Brace] 1 each MC DAILY #1 each Ibuprofen 800 mg PO Q8H PRN #20 tablet PRN Reason: pain - Referrals Referrals: Ziyad Roach MD [Primary Care Provider] - - Patient Instructions Printed Discharge Instructions: DI for Wrist Sprain Additional Instructions: take medications as needed for pain. wear prescribed wrist brace daily until symptoms resolves. follow-up with referred orthopedics if symptoms persist for more than 4 days - Post Discharge Activity
[2018-03-06] MEDS ORDERED: IBUPROFEN 600 MG TABLET (FP) PO ONE ×2 (16:48→16:49)
== END 2018-03-06 17:08 | disposition home or self-care (01) ==
LOC: JERFT 15:04
PROC: 2W3CX1Z Immobilization of Right Lower Arm using Splint (ICD-10-PCS; principal; 2018-03-06)
DX: S63.641A Sprain of metacarpophalangeal joint of right thumb, initial encounter (principal); W18.39XA Other fall on same level, initial encounter; Y93.89 Activity, other specified; Y92.89 Other specified places as the place of occurrence of the external cause
CPT/HCPCS: 29125; 73110-TC-RT-FY; 73130-TC-RT-FY; 73140-TC-RT-FY; 84703; 99281-25

== ENCOUNTER 2018-05-01 19:55 | Emergency (ER) | payer OTHER ==
[2018-05-01 19:58] VITALS: BP 110/55; PULSE 77; TEMP 98.5; BMI 18.3
--- NOTE | 2018-05-01 20:09 | PDOC ---
History of Present Illness - General Chief Complaint: Pain, Acute Stated Complaint: PAIN, ACUTE Time Seen by Provider: 05/01/18 20:07 History Source: Patient Exam Limitations: No Limitations - History of Present Illness Initial Comments: 05/01/18 20:55 This is a 23 yo F with pmh of frequent UTIs, R kidney stone (patient showed a report of a 1 mm distal ureter stone) and chlamydia (treated several years ago) who presents with R flank pain that started yesterday 10/21, constant, dull, nonradiating, feels like her usual uti symptoms. She denies dysuria, hematuria, unusual urine odor or cloudy urine. Denies f/c, dizziness, abd pain, d/c/v. + mild nausea and weakness. Last std test done over the summer, patient has been monogamous with 1 partner for a year. She is currently menstruating. 05/01/18 20:57 05/01/18 21:07 Past History - Past Medical History Allergies/Adverse Reactions: Allergies Allergy/AdvReac Type Severity Reaction Status Date / Time No Known Allergies Allergy Verified 05/01/18 19:59 Home Medications: Ambulatory Orders Ibuprofen 800 mg PO Q8H PRN #20 tablet 03/06/18 Asthma: No Cancer: No Cardiac Disorders: No COPD: No Diabetes: No HTN: No Seizures: No Thyroid Disease: No - Surgical History Abdominal Surgery: Yes (HERNIA REPAIR) - Immunization History Immunization Up to Date: Yes - Suicide/Smoking/Psychosocial Hx Smoking History: Never smoked Have you smoked in the past 12 months: No Number of Cigarettes Smoked Daily: 0 Hx Alcohol Use: No Drug/Substance Use Hx: No Substance Use Type: None Hx Substance Use Treatment: No Review of Systems - Review of Systems Able to Perform ROS?: Yes Is the patient limited Sinhala proficient: No Constitutional: No: Chills, Fever, Loss of Appetite Respiratory: No: Cough, Shortness of Breath Cardiac (ROS): No: Chest Pain, Edema, Lightheadedness, Palpitations, Syncope ABD/GI: Yes: Nausea. No: Abdominal Distended, Constipated, Diarrhea, Poor Appetite, Poor Fluid Intake, Rectal Bleeding, Vomiting, Abdominal cramping, Tarry Stools : Yes: Flank Pain (r flank pain ). No: Burning, Dysuria, Discharge Musculoskeletal: Yes: Back Pain (r side ). No: Joint Pain Integumentary: No: Bruising Neurological: No: Headache, Numbness, Paresthesia Psychiatric: No: Anxiety, Depression *Physical Exam - Vital Signs Last Vital Signs Temp Pulse Resp BP Pulse Ox 98.5 F 77 18 110/55 L 100 05/01/18 19:56 05/01/18 19:56 05/01/18 19:56 05/01/18 19:56 05/01/18 19:56 - Physical Exam General Appearance: Yes: Nourished, Appropriately Dressed, Thin. No: Apparent Distress, Disheveled, Mild Distress HEENT: positive: KATHRINE, Normal Voice, Symmetrical. negative: Scleral Icterus (R) , Scleral Icterus (L) Neck: positive: Trachea midline, Supple. negative: Tender, Carotid bruit Respiratory/Chest: positive: Lungs Clear, Normal Breath Sounds Cardiovascular: positive: Regular Rhythm, Regular Rate, S1, S2. negative: Edema , Murmur Gastrointestinal/Abdominal: positive: Tender (ruq, rlq, epigastric, suprapubic tenderness), Flat, Soft. negative: Organomegaly, Pulsatile Mass Musculoskeletal: positive: CVA Tenderness (mild R cva tenderness ) Integumentary: positive: Dry, Warm Neurologic: positive: driver/merchandiser II-XII NML intact (grossly ), Fully Oriented, Alert, Normal Mood/Affect Moderate Sedation - Procedure Monitoring Vital Signs: Procedure Monitoring Vital Signs Temperature 98.5 F 05/01/18 19:56 Pulse Rate 77 05/01/18 19:56 Respiratory Rate 18 05/01/18 19:56 Blood Pressure 110/55 L 05/01/18 19:56 O2 Sat by Pulse Oximetry (%) 100 05/01/18 19:56 ED Treatment Course - LABORATORY CBC & Chemistry Diagram: 05/01/18 20:24 05/01/18 20:24 - ADDITIONAL ORDERS Additional order review: 05/01/18 22:42 cbc, cmp, ua unremarkable. abd US unremarkable for renal/gi/gu pathology. no evidence of uti, hydronephrosis, nephrolithiasis. watient was hydrated with NS IV and was given in toradol. will dc home with recommendation for po tylenol prn *DC/Admit/Observation/Transfer Diagnosis at time of Disposition: Back pain - Discharge Dispostion Disposition: HOME Condition at time of disposition: Good Decision to Admit order: No - Referrals - Patient Instructions - Post Discharge Activity
--- NOTE | 2018-05-01 20:14 | PDOC ---
Attending Attestation - HPI HPI: 05/01/18 21:07 The patient is a 23 year old female, with a significant PMH of kidney stones, frequent UTIs, who presents to the emergency department with right sided flank pain. The patient describes the right flank pain as constant, rated 7/10 in intensity, sharp, with no exacerbating or remitting factors. The patient states she has tried taking Motrin with minimal relief. The patient states her kidney stones in the past have been on her right side. The patient also endorses nausea and fatigue secondary to the right flank pain. The patient states she is currently on her menstrual period. The patient states she has been having normal bowel movements. The patient denies chest pain, shortness of breath, headache and dizziness. Denies fever, chills, vomit, diarrhea and constipation. Denies dysuria, frequency, urgency and hematuria. Allergies: NKA Surgical History: and 2 inguinal hernia repairs. Documentation prepared by Leo Carpenter, acting as medical records library professor for Ashley Fenton MD. - Physicial Exam PE: 05/01/18 21:07 GENERAL: Awake, alert, and fully oriented, in no acute distress HEAD: No signs of trauma EYES: PERRLA, EOMI, sclera anicteric, conjunctiva clear ENT: Auricles normal inspection, hearing grossly normal, nares patent, oropharynx clear without exudates. Moist mucosa NECK: Normal ROM, supple, no lymphadenopathy, JVD, or masses LUNGS: Breath sounds equal, clear to auscultation bilaterally. No wheezes, and no crackles HEART: Regular rate and rhythm, normal S1 and S2, no murmurs, rubs or gallops ABDOMEN: (+) Diffuse abdominal tenderness to palpation. No rebound or guarding. (+) Abdominal wall is slightly deformed with prominent xiphoid/ floating ribs interiorly and centrally. Soft, normoactive bowel sounds. No masses BACK: (+) Right flank pain to palpation. No pain to percussion. EXTREMITIES: Normal range of motion, no edema. No clubbing or cyanosis. No cords, erythema, or tenderness NEUROLOGICAL: Cranial nerves II through XII grossly intact. Normal speech, normal gait SKIN: Warm, Dry, normal turgor, no rashes or lesions noted. <Leo Carpenter - Last Filed: 05/01/18 21:07> - Resident Resident Name: Julia Brownudmila - ED Attending Attestation I have performed the following: I have examined & evaluated the patient, The case was reviewed & discussed with the resident, I agree w/resident's findings & plan - Medical Decision Making 05/02/18 06:17 Pt comes with dissue abd pain more on the right side and flank and RUQ. Sonogram of the RUQ and her flank is normal. Normal GB and normal kidneys. Pt has normal labs and UA and she will be sent home with OTC pain meds. <Ashley Fenton - Last Filed: 05/02/18 06:18>
[2018-05-01] MEDS ORDERED: traMADol HCL 50 MG TABLET PO ONE (20:34)
[2018-05-01] MEDS ORDERED: KETOROLAC TROMETHAMINE 10 MG TABLET PO ONE (20:36)
[2018-05-01] MEDS ORDERED: KETOROLAC TROMETHAMINE 30 MG/1 ML VIAL IVPUSH ONE (20:39)
[2018-05-01 20:40] LABS: MCH 25.9 pg (25.7-33.7); WHITE BLOOD COUNT 5.7 K/mm3 (4.0-10.0)
[2018-05-01] MEDS ORDERED: SODIUM CHLORIDE 0.9% 500 ML INFUS.BAG IV ONE (20:40)
[2018-05-01] MEDS ORDERED: KETOROLAC TROMETHAMINE 30 MG/1 ML VIAL ONE (20:42)
[2018-05-01 20:44] LABS: HCG,QUALITATIVE URINE Negative; URINE APPEARANCE CLOUDY; URINE BILIRUBIN NEGATIVE (<2.0 mg/dL); URINE COLOR YELLOW; URINE GLUCOSE (UA) NEGATIVE (NEGATIVE); URINE KETONE TRACE (NEGATIVE); URINE LEUK ESTERASE NEGATIVE (NEGATIVE); URINE NITRITE NEGATIVE (NEGATIVE); URINE PROTEIN 1+ (NEGATIVE); URINE UROBILINOGEN NEGATIVE mg/dL (0.2-1.0)
[2018-05-01 20:46] LABS: BASO % 0.7 % (0-2.0); HEMATOCRIT 33.6 % (32.4-45.2); HEMOGLOBIN 11.1 GM/dL (10.7-15.3); LYMPH % 11.5 % (8-40); MCHC 32.9 g/dl (32.0-36.0); MEAN CELL VOLUME 78.8 fl (80-96); MEAN PLT VOLUME 8.9 fl (7.5-11.1); MONO % 11.3 % (3.8-10.2); NEUT % 75.5 % (42.8-82.8); PLATELET COUNT 273 K/MM3 (134-434); RBC 4.26 M/mm3 (3.60-5.2); RDW 18.4 % (11.6-15.6)
[2018-05-01 20:48] LABS: EPI CELLS RARE /HPF (FEW); URINE MUCUS FEW
[2018-05-01 21:02] LABS: ALBUMIN 3.8 g/dl (3.4-5.0); ALK PHOS 102 U/L (45-117); ANION GAP 6 MMOL/L (8-16); BILIRUBIN,TOTAL 0.4 mg/dL (0.2-1); BLOOD UREA NITROGEN 8 mg/dL (7-18); CALCIUM 8.5 mg/dL (8.5-10.1); CHLORIDE 109 mmol/L (98-107); CO2 27 mmol/L (21-32); CREATININE 0.7 mg/dL (0.55-1.3); GLUCOSE,RANDOM 85 mg/dL (74-106); POTASSIUM 3.9 mmol/L (3.5-5.1); SGOT/AST 13 U/L (15-37); SGPT/ALT 16 U/L (13-61); SODIUM 142 mmol/L (136-145)
== END 2018-05-01 23:15 | disposition home or self-care (01) ==
LOC: JER 19:55
PROC: 3E0333Z Introduction of Anti-inflammatory into Peripheral Vein, Percutaneous Approach (ICD-10-PCS; principal; 2018-05-01)
DX: M54.5 Low back pain (principal); Z87.442 Personal history of urinary calculi
CPT/HCPCS: 36415; 76700-TC; 80053; 81003; 81015; 83690; 84703; 85025; 96374; 99283-25

== ENCOUNTER 2018-05-10 15:56 | Emergency (ER) | payer OTHER ==
[2018-05-10 16:03] VITALS: TEMP 98.4; BMI 17.2
--- NOTE | 2018-05-10 16:18 | PDOC ---
History of Present Illness - General Chief Complaint: Pain, Acute Stated Complaint: ABD PAIN Time Seen by Provider: 05/10/18 16:17 History Source: Patient Exam Limitations: No Limitations - History of Present Illness Initial Comments: 05/10/18 16:23 This is a 23 yo F with pmh of frequent UTIs, R kidney stone (patient showed a report of a 1 mm distal ureter stone) and chlamydia (treated several years ago) who presented with R flank pain 05/01/18 (negative workup), who again presents with abdominal pain. during last visit she had abd US that showed unremarkable kidneys and Gb but did not visualize appendix. Patient states that her pain has progressively worsened, to the point where she is unable to lie on her R side. It radiates from R flank to r abdomen, is constant and aggravated by movement. she reports nausea and chills w/o v/d/f, dysuria, hematuria, melena, hematochezia. she has lost her appetite and has been taking ibuprofen 800, 2 at a time 6 times/day. LMP Apr 26, now over 05/10/18 16:39 05/10/18 16:43 Past History - Past Medical History Allergies/Adverse Reactions: Allergies Allergy/AdvReac Type Severity Reaction Status Date / Time No Known Allergies Allergy Verified 05/01/18 19:59 Home Medications: Ambulatory Orders Ibuprofen 800 mg PO Q8H PRN #20 tablet 03/06/18 Asthma: No Cancer: No Cardiac Disorders: No COPD: No Diabetes: No HTN: No Seizures: No Thyroid Disease: No - Surgical History Abdominal Surgery: Yes (HERNIA REPAIR) - Immunization History Immunization Up to Date: Yes - Suicide/Smoking/Psychosocial Hx Smoking History: Never smoked Have you smoked in the past 12 months: No Number of Cigarettes Smoked Daily: 0 Information on smoking cessation initiated: No Hx Alcohol Use: No Drug/Substance Use Hx: No Substance Use Type: None Hx Substance Use Treatment: No Review of Systems - Review of Systems Able to Perform ROS?: Yes Is the patient limited Mongolian proficient: No Constitutional: Yes: Chills, Weakness. No: Fever HEENTM: No: Nose Congestion Respiratory: No: Cough, Shortness of Breath Cardiac (ROS): No: Chest Pain, Edema, Irregular Heart Rate, Lightheadedness, Palpitations, Syncope ABD/GI: Yes: Nausea, Poor Appetite, Abdominal cramping. No: Abdominal Distended , Constipated, Diarrhea, Rectal Bleeding, Vomiting, Tarry Stools : Yes: Flank Pain (R). No: Dysuria, Hematuria Musculoskeletal: No: Back Pain Neurological: No: Headache, Numbness, Paresthesia Psychiatric: No: Anxiety, Depression *Physical Exam - Vital Signs Last Vital Signs Temp Pulse Resp BP Pulse Ox 98.4 F 82 18 109/55 L 98 05/10/18 16:00 05/10/18 16:00 05/10/18 16:00 05/10/18 16:00 05/10/18 16:00 - Physical Exam General Appearance: Yes: Nourished, Appropriately Dressed, Mild Distress, Thin HEENT: positive: EOMI. negative: Scleral Icterus (R), Scleral Icterus (L), Nasal Congestion Neck: positive: Normal Thyroid, Supple. negative: Tender, Lymphadenopathy (R), Lymphadenopathy (L) Respiratory/Chest: positive: Lungs Clear, Normal Breath Sounds Cardiovascular: positive: Regular Rate, S1, S2. negative: Edema Gastrointestinal/Abdominal: positive: Normal Bowel Sounds, Tender (RUQ, RLQ tender to percussion ), Flat, Soft. negative: Organomegaly, Mass Musculoskeletal: positive: CVA Tenderness (R) Integumentary: positive: Dry, Warm Neurologic: positive: roving sizer II-XII NML intact (grossly) Moderate Sedation - Procedure Monitoring Vital Signs: Procedure Monitoring Vital Signs Temperature 98.4 F 05/10/18 16:00 Pulse Rate 82 05/10/18 16:00 Respiratory Rate 18 05/10/18 16:00 Blood Pressure 109/55 L 05/10/18 16:00 O2 Sat by Pulse Oximetry (%) 98 05/10/18 16:00 ED Treatment Course - LABORATORY CBC & Chemistry Diagram: 05/10/18 17:06 05/10/18 17:06 - ADDITIONAL ORDERS Additional order review: 05/10/18 16:48 r/o appendicitis. also concerned about acetaminophen OD/renal damage f/u cbc diff, cmp, lactate, acetaminophen and tylenol levels, ua, urine bHCG pre hydrate with 1 L NS 05/10/18 17:45 Labs unremarkable, no leukocytosis, urine clean, creak wnl, acetaminophen level unconcerning, u bhcg negative f/u CT abd w cont r/o appendicitis patient is now walking around and appears comfortable. 05/10/18 18:10 05/10/18 20:16 CT abdomen/pelvis with IV cont showed no acute intraabdominal pathology. showed a small 1-2mm nonobstructive R nephrolithiasis. 05/10/18 20:17 will dc patient home with GI f/u, neds workup for IBD, celiac, lactose intolerance *DC/Admit/Observation/Transfer Diagnosis at time of Disposition: Abdominal pain Qualifiers: Abdominal location: right lower quadrant Qualified Code(s): R10.31 - Right lower quadrant pain - Discharge Dispostion Disposition: HOME Condition at time of disposition: Good Decision to Admit order: No - Referrals Referrals: Pina Roach MD [Primary Care Provider] - Roverto Cano MD [Staff Physician] - - Patient Instructions Additional Instructions: you were in ED due to abdominal pain. Your blood work (CBC, CMP, lactic acid, UA ) was normal. You had a CT scan on abdomen/pelvis with contrast that did not show any issues. It did show a small 1-2mm right kidney stone that would not cause your symptoms. Please follow up with your primary doctor as soon as possible. We recommend you to see a carriage setter (see referral for Dr Cano) to evaluate you for celiac disease (gluten sensitivity), lactose intolerance and irritable bowel disease. - Post Discharge Activity Forms/Work/School Notes: Back to Work
--- NOTE | 2018-05-10 16:28 | PDOC ---
Attending Attestation - Resident Resident Name: StephanieFrancheska - ED Attending Attestation I have performed the following: I have examined & evaluated the patient, The case was reviewed & discussed with the resident, I agree w/resident's findings & plan, Exceptions are as noted - HPI HPI: 05/10/18 16:27 23 yo female with PMH uti,nephrolithiasis p/w suprapubic discomfort. she came to the ED lsat week 05/01/18 for rt sided flank pain and had a gallbladder US that did not show any cholecystitis and unremarkable labs abd negative preg test 05/10/18 16:31 - Physicial Exam PE: 05/10/18 17:47 thin 23 yo female with c/o rt sided flank pain radiating to the groin head ncat neck supple lungs cta b/l cvs [id number] abd tenderness in rlq, rt groin flank rt cva tenderness ext no e/c/c skin warm and dry neuro axox3,ambulatory psych appropriate 05/10/18 17:53 05/10/18 18:08 - Medical Decision Making 05/10/18 21:54 Reviewing her labs : no leukocytosis,no anemia, electrolytes are wnl neg preg test ct scan abs/pel : no acute intra abdominal processes, no appendicitis, no diverticulitis, no sbo, no masses discharged home with GI follow up
[2018-05-10] MEDS ORDERED: SODIUM CHLORIDE 0.9% 500 ML INFUS.BAG IV ONE (16:35)
[2018-05-10] MEDS ORDERED: ONDANSETRON 4 MG/2 ML VIAL IVPUSH ONE (16:52)
[2018-05-10] MEDS ORDERED: ONDANSETRON 4 MG/2 ML VIAL ONE (17:01)
[2018-05-10 17:13] LABS: BASO % 0.6 % (0-2.0); EOS % 0.8 % (0-4.5); HEMATOCRIT 33.1 % (32.4-45.2); LYMPH % 9.4 % (8-40); MCH 26.2 pg (25.7-33.7); MCHC 33.3 g/dl (32.0-36.0); MEAN CELL VOLUME 78.6 fl (80-96); MEAN PLT VOLUME 8.2 fl (7.5-11.1); MONO % 9.9 % (3.8-10.2); NEUT % 79.3 % (42.8-82.8); PLATELET COUNT 402 K/MM3 (134-434); RBC 4.22 M/mm3 (3.60-5.2); RDW 17.3 % (11.6-15.6); WHITE BLOOD COUNT 6.3 K/mm3 (4.0-10.0)
[2018-05-10 17:16] LABS: URINE APPEARANCE SLCLOUDY; URINE BILIRUBIN NEGATIVE (<2.0 mg/dL); URINE COLOR YELLOW; URINE GLUCOSE (UA) NEGATIVE (NEGATIVE); URINE KETONE TRACE (NEGATIVE); URINE LEUK ESTERASE NEGATIVE (NEGATIVE); URINE NITRITE NEGATIVE (NEGATIVE); URINE PROTEIN 2+ (NEGATIVE); URINE UROBILINOGEN NEGATIVE mg/dL (0.2-1.0)
[2018-05-10 17:18] LABS: HCG,QUALITATIVE URINE Negative
[2018-05-10 17:24] LABS: EPI CELLS FEW /HPF (FEW); URINE MUCUS FEW
[2018-05-10 17:35] LABS: ALBUMIN 3.8 g/dl (3.4-5.0); ALK PHOS 104 U/L (45-117); ANION GAP 5 MMOL/L (8-16); BILIRUBIN,TOTAL 0.3 mg/dL (0.2-1); BLOOD UREA NITROGEN 15 mg/dL (7-18); CALCIUM 8.5 mg/dL (8.5-10.1); CHLORIDE 106 mmol/L (98-107); CO2 29 mmol/L (21-32); CREATININE 0.7 mg/dL (0.55-1.3); GLUCOSE,RANDOM 85 mg/dL (74-106); POTASSIUM 4.2 mmol/L (3.5-5.1); SGOT/AST 15 U/L (15-37); SGPT/ALT 14 U/L (13-61); SODIUM 140 mmol/L (136-145); TOT PROT 7.7 g/dl (6.4-8.2)
[2018-05-10] MEDS ORDERED: KETOROLAC TROMETHAMINE 30 MG/1 ML VIAL IVPUSH ONE (19:51)
[2018-05-10] MEDS ORDERED: KETOROLAC TROMETHAMINE 30 MG/1 ML VIAL ONE (19:52)
[2018-05-10 20:44] VITALS: BP 107/72; PULSE 71
== END 2018-05-10 20:44 | disposition home or self-care (01) ==
LOC: JER 15:56
PROC: 3E033GC Introduction of Other Therapeutic Substance into Peripheral Vein, Percutaneous Approach (ICD-10-PCS; principal; 2018-05-10)
PROC: 3E0333Z Introduction of Anti-inflammatory into Peripheral Vein, Percutaneous Approach (ICD-10-PCS; 2018-05-10)
DX: N20.0 Calculus of kidney (principal)
CPT/HCPCS: 36415; 74177-TC; 80053; 80307; 81003; 81015; 83605; 84703; 85025; 96374; 96375; 99283-25

== ENCOUNTER 2018-07-12 09:07 | Emergency (ER) | payer OTHER ==
[2018-07-12 09:12] VITALS: BP 108/58; PULSE 72; TEMP 98.7; BMI 17.5
--- NOTE | 2018-07-12 10:43 | PDOC ---
History of Present Illness - General Chief Complaint: Sore Throat Stated Complaint: SORE THROAT Time Seen by Provider: 07/12/18 09:29 History Source: Patient Exam Limitations: No Limitations - History of Present Illness Initial Comments: 07/12/18 10:11 States has been having a cough and congestion for the past 2-3 days. Denies fever, denies any purulent drainage but states has had sore throat pain that's worsened in the morning. States suffers from seasonal ALLERGIES but has not taken any medication for relief of same. Timing/Duration: unsure Past History - Travel Traveled outside of the country in the last 30 days: No Close contact w/someone who was outside of country & ill: No - Past Medical History Allergies/Adverse Reactions: Allergies Allergy/AdvReac Type Severity Reaction Status Date / Time No Known Allergies Allergy Verified 07/12/18 09:12 Home Medications: Ambulatory Orders Cetirizine HCl/Pseudoephedrine [Allergy+Congestion Relf-D Tab] 1 each PO DAILY # 30 tab 07/12/18 Asthma: No Cancer: No Cardiac Disorders: No COPD: No Diabetes: No HTN: No Seizures: No Thyroid Disease: No - Surgical History Abdominal Surgery: Yes (HERNIA REPAIR) - Immunization History Immunization Up to Date: Yes - Suicide/Smoking/Psychosocial Hx Smoking History: Never smoked Have you smoked in the past 12 months: No Number of Cigarettes Smoked Daily: 0 Hx Alcohol Use: No Drug/Substance Use Hx: No Substance Use Type: None Hx Substance Use Treatment: No Review of Systems - Review of Systems Able to Perform ROS?: Yes Is the patient limited [place] Rican proficient: Yes Constitutional: Yes: Symptoms Reported, See HPI, Malaise. No: Fever HEENTM: Yes: Symptoms Reported, See HPI Respiratory: Yes: Symptoms reported, See HPI, Cough Musculoskeletal: Yes: See HPI. No: Symptoms Reported, Back Pain Integumentary: Yes: See HPI. No: Symptoms Reported Neurological: Yes: Symptoms reported, See HPI, Headache All Other Systems: Reviewed and Negative *Physical Exam - Vital Signs Last Vital Signs Temp Pulse Resp BP Pulse Ox 98.7 F 72 18 108/58 L 99 07/12/18 09:09 07/12/18 09:09 07/12/18 09:09 07/12/18 09:09 07/12/18 09:09 - Physical Exam General Appearance: Yes: Nourished, Appropriately Dressed, Apparent Distress, Mild Distress HEENT: positive: KATHRINE, Normal ENT Inspection (no redness, swelling, exudate), TMs Normal (congested but landmarks easily visualized) Neck: positive: Supple. negative: Tender, Lymphadenopathy (R), Lymphadenopathy (L) Respiratory/Chest: positive: Lungs Clear, Normal Breath Sounds. negative: Rhonchi, Wheezing Gastrointestinal/Abdominal: positive: Soft. negative: Tender Extremity: positive: Normal Capillary Refill, Normal Inspection Integumentary: positive: Dry, Warm, Pale Neurologic: positive: software technical lead II-XII NML intact, Fully Oriented, Alert, Normal Mood/ Affect, Normal Response, Motor Strength 08/16 ED Treatment Course - ADDITIONAL ORDERS Additional order review: Laboratory Results 07/12/18 09:56 Urine HCG, Qual Negative Medical Decision Making - Medical Decision Making 07/12/18 10:44 Upper respiratory infection, mild versus ALLERGIC rhinitis, will encourage conservative measures and antihistamine with decongestant *DC/Admit/Observation/Transfer Diagnosis at time of Disposition: Upper respiratory infection Qualifiers: URI type: unspecified viral URI Qualified Code(s): J06.9 - Acute upper respiratory infection, unspecified - Discharge Dispostion Disposition: HOME Condition at time of disposition: Stable Decision to Admit order: No - Referrals Referrals: Ziyad Roach MD [Primary Care Provider] - - Patient Instructions Printed Discharge Instructions: DI for Allergic Rhinitis Additional Instructions: Rest, drink lots of fluids: Teas, water, soups Saltwater gargles. Consider humidifier in room at night Steamy showers/seem to face break up mucus Avoid contact with allergens, exposure to pollens, close windows on a windy day Lots of handwashing and good hygiene Continue [id number] medications for symptomatic relief- may use allergic eyedrops for itching I Continue antihistamines daily until pollen season is over; Zyrtec, Claritin, An during the daytime and Benadryl at nighttime as will make sleepy Tylenol or Motrin for fever and pain Followup with private physician in one to 2 days as needed Consider following up with an computer systems technology instructor/sole layer hand for skin testing and possible allergy shots Return to emergency department for worsened symptoms, fevers, dehydration - Post Discharge Activity Forms/Work/School Notes: Back to Work
== END 2018-07-12 10:15 | disposition home or self-care (01) ==
LOC: JERFT 09:07
DX: J06.9 Acute upper respiratory infection, unspecified (principal); B97.89 Other viral agents as the cause of diseases classified elsewhere
CPT/HCPCS: 84703; 99281-25

== ENCOUNTER 2018-09-24 20:29 | Emergency (ER) | payer OTHER | END 2018-09-24 21:56 | disposition home or self-care (01) | LOC: JER 20:29 ==

== ENCOUNTER 2018-12-28 05:06 | Emergency (ER) | payer OTHER | END 2018-12-28 06:21 | disposition home or self-care (01) | LOC: JER 05:06 ==

== ENCOUNTER 2019-01-21 17:28 | Emergency (ER) | payer OTHER ==
[2019-01-21] MEDS ORDERED: IBUPROFEN 600 MG TABLET (FP) PO ONE ×2 (17:45→17:50)
--- NOTE | 2019-01-21 17:45 | PDOC ---
Rapid Medical Evaluation Chief Complaint: Chest Pain Time Seen by Provider: 01/21/19 17:41 Medical Evaluation: Allergies Allergy/AdvReac Type Severity Reaction Status Date / Time No Known Allergies Allergy Verified 12/28/18 05:16 01/21/19 17:41 Pt c/o: nasal congestion x 3 days followed by cough , now with body aches, took tylenol last night, no asthma, non smoker Patient on brief exam: + nasal congestion , no erythema to post pharynx, lcta, tachy, 98.6 Patient ordered for: motrin and strep Patient to proceed to the ED Discharge Disposition - Diagnosis Influenza-like illness - Referrals - Patient Instructions - Post Discharge Activity
[2019-01-21 17:46] VITALS: BP 114/77; PULSE 107; TEMP 98.6; BMI 32.9
[2019-01-21] MEDS ORDERED: DEXAMETHASONE LIQUID 0.5 MG/5 ML PO ONE (17:56)
[2019-01-21] MEDS ORDERED: guaiFENesin/CODEINE 10 ML UNIT-DOSE CUPS PO ONE (17:56)
[2019-01-21] MEDS ORDERED: PSEUDOEPHEDRINE HCL 30 MG TABLET PO ONE (17:57)
[2019-01-21] MEDS ORDERED: PSEUDOEPHEDRINE HCL 60 MG TABLET ONE (18:18)
[2019-01-21] MEDS ORDERED: DEXAMETHASONE SOD PHOSPHATE 10 MG/1 ML VIAL ONE (18:20)
[2019-01-21] MEDS ORDERED: guaiFENesin/D-METHORPHAN HB 10 ML UNIT-DOSE CUPS ONE (18:21)
--- NOTE | 2019-01-21 19:14 | PDOC ---
History of Present Illness - General Chief Complaint: Chest Pain Stated Complaint: CHEST/FLU Time Seen by Provider: 01/21/19 17:41 History Source: Patient Exam Limitations: No Limitations Past History - Travel Traveled outside of the country in the last 30 days: No Close contact w/someone who was outside of country & ill: No - Past Medical History Allergies/Adverse Reactions: Allergies Allergy/AdvReac Type Severity Reaction Status Date / Time No Known Allergies Allergy Verified 01/21/19 17:42 Home Medications: Ambulatory Orders Albuterol 0.083% Nebulizer Adriana [Ventolin 0.083% Nebulizer Soln -] 1 neb NEB Q4H #20 vial 01/21/19 Guaifenesin AC [Robitussin AC] 10 ml PO Q8H #200 ml MDD 3 01/21/19 Pseudoephedrine HCl 30 mg PO TID #21 tablet 01/21/19 predniSONE [Deltasone -] 40 mg PO DAILY #8 tablet 01/21/19 Asthma: No Cancer: No Cardiac Disorders: No COPD: No Diabetes: No HTN: No Seizures: No Thyroid Disease: No - Surgical History Abdominal Surgery: Yes (HERNIA REPAIR) - Immunization History Immunization Up to Date: Yes - Psycho Social/Smoking Cessation Hx Smoking History: Never smoked Have you smoked in the past 12 months: No Number of Cigarettes Smoked Daily: 0 Hx Alcohol Use: No Drug/Substance Use Hx: No Substance Use Type: None Hx Substance Use Treatment: No Review of Systems - Review of Systems Able to Perform ROS?: Yes Comments:: 01/21/19 19:07 CONSTITUTIONAL: Present: subjective Fever, chills, body aches Absent: diaphoresis, generalized weakness, malaise, loss of appetite HEENT: Present: rhinorrhea, nasal congestion, throat pain. Absent: difficulty swallowing, mouth swelling, ear pain, eye pain, visual Changes CARDIOVASCULAR: Absent: chest pain, loss of consciousness, palpitations, irregular heart rate, peripheral edema RESPIRATORY: Present: Cough Absent: shortness of breath, dyspnea with exertion, orthopnea, wheezing, stridor, hemoptysis GASTROINTESTINAL: Absent: abdominal pain, abdominal distension, nausea, vomiting, diarrhea, constipation, melena, hematochezia SKIN: Absent: rash, itching, pallor NEUROLOGIC: Absent: headache, focal weakness or paresthesias, dizziness, unsteady gait, seizure, mental status changes, bladder or bowel incontinence Is the patient limited Jordanian proficient: No *Physical Exam - Vital Signs Last Vital Signs Temp Pulse Resp BP Pulse Ox 98.6 F 107 H 18 114/77 98 01/21/19 17:43 01/21/19 17:43 01/21/19 17:43 01/21/19 17:43 01/21/19 17:43 - Physical Exam Comments: 01/21/19 19:08 GENERAL: Well developed, well nourished. Awake and alert. No acute distress. HEENT: Normocephalic, atraumatic. PERRLA, EOMI. No conjunctival pallor. Sclera are non- icteric. Moist mucous membranes. Oropharynx is clear. NECK: Supple. Full ROM. No JVD. Carotid pulses 2+ and symmetric, without bruits. No thyromegaly. No lymphadenopathy. CARDIOVASCULAR: Regular rate and rhythm. No murmurs, rubs, or gallops. Distal pulses are 2+ and symmetric. PULMONARY: No evidence of respiratory distress. Lungs clear to auscultation bilaterally. No wheezing, rales or rhonchi. Wet cough noted. ABDOMINAL: Soft. Non-tender. Non-distended. No rebound or guarding. No organomegaly. Normoactive bowel sounds. MUSCULOSKELETAL Normal range of motion at all joints. No bony deformities or tenderness. No CVA tenderness. EXTREMITIES: No cyanosis. No clubbing. No edema. No calf tenderness. SKIN: Warm and dry. Normal capillary refill. No rashes. No jaundice. NEUROLOGICAL: Alert, awake, appropriate. Cranial nerves 2-12 intact. No deficits to light touch and temperature in face, upper extremities and lower extremities. No motor deficits in the in face, upper extremities and lower extremities. Normoreflexic in the upper and lower extremities. Normal speech. Toes are down- going bilaterally. Gait is normal without ataxia. PSYCHIATRIC: Cooperative. Good eye contact. Appropriate mood and affect. ED Treatment Course - Medications Given in the ED: ED Medications Discontinued Medications Generic Name Dose Route Start Last Admin Trade Name Freq PRN Reason Stop Dose Admin Dexamethasone 10 mg 01/21/19 17:56 01/21/19 18:26 Decadron Liquid - PO 01/21/19 17:57 10 mg ONCE ONE Administration Guaifenesin/Codeine Phosphate 10 ml 01/21/19 17:56 01/21/19 18:26 Robitussin Ac - PO 01/21/19 17:57 10 ml ONCE ONE Administration Ibuprofen 600 mg 01/21/19 17:45 01/21/19 17:52 Motrin - PO 01/21/19 17:46 600 mg ONCE ONE Administration Pseudoephedrine HCl 30 mg 01/21/19 17:57 01/21/19 18:26 Sudafed - PO 01/21/19 17:58 30 mg ONCE ONE Administration Medical Decision Making - Medical Decision Making 01/21/19 19:08 The patient is a 23-year-old female no past medical history who presents to the ER today for flulike symptoms for the past 3 days. She states that she has a sore throat and nasal congestion. She notes that the throat pain got worse and then the coughing started. She states that it is hard to catch her breath and she cannot take a deep breath without coughing. She admits to associated chest tightness. Denies lightheadedness, dizziness, earache, wheezing, nausea, vomiting and urinary symptoms. A/P: Bronchitis On exam the lungs are clear to auscultation bilaterally with no wheezes rale or rhonchi, patient does have wet cough and is unable to take a deep breath without coughing. Throat and ears are unremarkable. Patient given Decadron, Motrin, DuoNeb's, Robitussin AC with relief of symptoms. Vital signs stable, patient is afebrile. We will discharge home with supportive therapy Primary care follow-up given I discussed the physical exam findings, ancillary test results and final diagnoses with the patient. I answered all of the patient's questions. The patient was satisfied with the care received and felt comfortable with the discharge plan and treatment plan. The Patient agrees to follow up with the primary care physician/specialist within 24-72 hours. Return precautions were given. Discharge - Discharge Information Problems reviewed: Yes Clinical Impression/Diagnosis: Bronchitis Condition: Stable Disposition: HOME - Admission No - Additional Discharge Information Prescriptions: Albuterol 0.083% Nebulizer Adriana [Ventolin 0.083% Nebulizer Soln -] 1 neb NEB Q4H #20 vial Guaifenesin AC [Robitussin AC] 10 ml PO Q8H #200 ml MDD 3 predniSONE [Deltasone -] 40 mg PO DAILY #8 tablet Pseudoephedrine HCl 30 mg PO TID #21 tablet - Follow up/Referral Referrals: Pina Roach MD [Primary Care Provider] - - Patient Discharge Instructions Patient Printed Discharge Instructions: DI for Acute Bronchitis Additional Instructions: You have bronchitis Please use the nebulizer every 4 hours for the next week to help with your cough. Continue taking the prednisone daily for the next 4 days, starting tomorrow. You may take the Robitussin with codeine at night before bed to help with your cough. Do not drive or drink alcohol after taking this medication as it may make you sleepy. Warm steamy showers may help You may also take the Sudafed as directed to help with your nasal congestion. Please follow up with your primary care doctor in 1 week if your symptoms are not improving. Return to the emergency department if you have fevers, chills, worsening cough, chest pain, worsening shortness of breath or if you have any changes in your symptoms. - Post Discharge Activity Work/Back to School Note: Back to Work
== END 2019-01-21 19:24 | disposition home or self-care (01) ==
LOC: JERFT 17:28
DX: J40 Bronchitis, not specified as acute or chronic (principal)
CPT/HCPCS: 87804; 99282-25

== ENCOUNTER 2019-03-01 05:39 | Emergency (ER) | payer OTHER ==
[2019-03-01 06:02] VITALS: BP 104/62; PULSE 74; TEMP 98.1; BMI 17.4
[2019-03-01] MEDS ORDERED: SILVER SULFADIAZINE 1% TOP CREAM 50 GM JAR TP ONE (07:35)
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
== END 2019-03-01 08:08 | disposition home or self-care (01) ==
LOC: JER 05:39
PROC: 2W2CX4Z Dressing of Right Lower Arm using Bandage (ICD-10-PCS; principal; 2019-03-01)
PROC: 2W2GX4Z Dressing of Right Thumb using Bandage (ICD-10-PCS; 2019-03-01)
DX: T22.111A Burn of first degree of right forearm, initial encounter (principal); T23.111A Burn of first degree of right thumb (nail), initial encounter; T31.0 Burns involving less than 10% of body surface; X10.2XXA Contact with fats and cooking oils, initial encounter; Y93.G3 Activity, cooking and baking; Y92.511 Restaurant or cafe as the place of occurrence of the external cause; Y99.0 Civilian activity done for income or pay
CPT/HCPCS: 16020; 99281-25

== ENCOUNTER 2019-04-30 04:25 | Emergency (ER) | payer OTHER ==
[2019-04-30 05:13] VITALS: TEMP 98.9; BMI 17.4
[2019-04-30] MEDS ORDERED: IBUPROFEN 600 MG TABLET (FP) PO ONE (05:35)
--- NOTE | 2019-04-30 05:36 | PDOC ---
History of Present Illness - General Chief Complaint: Nausea/Vomiting Stated Complaint: VOMITING,PAIN,CONGESTION - History of Present Illness Initial Comments: Bree Camp is a 24yo otherwise healthy woman who presents to the ED with 2 days of body aches, chills, productive cough, postnasal drip, and congestion. She additionally reports one episode of vomiting after prolonged coughing, but she otherwise denies nausea or change in bowel habits. She has not had a measured fever at home, but she has not checked. She reports that her boyfriend had similar symptoms last week. 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 Past History - Past Medical History Allergies/Adverse Reactions: Allergies Allergy/AdvReac Type Severity Reaction Status Date / Time No Known Allergies Allergy Verified 04/30/19 05:13 Home Medications: Ambulatory Orders Albuterol 0.083% Nebulizer Adriana [Ventolin 0.083% Nebulizer Soln -] 1 neb NEB Q4H #20 vial 01/21/19 Guaifenesin AC [Robitussin AC] 10 ml PO Q8H #200 ml MDD 3 01/21/19 Pseudoephedrine HCl 30 mg PO TID #21 tablet 01/21/19 predniSONE [Deltasone -] 40 mg PO DAILY #8 tablet 01/21/19 Asthma: No Cancer: No Cardiac Disorders: No COPD: No Diabetes: No HTN: No Seizures: No Thyroid Disease: No - Surgical History Abdominal Surgery: Yes (HERNIA REPAIR) - Immunization History Immunization Up to Date: Yes - Psycho Social/Smoking Cessation Hx Smoking History: Never smoked Have you smoked in the past 12 months: No Number of Cigarettes Smoked Daily: 0 Hx Alcohol Use: No Drug/Substance Use Hx: No Substance Use Type: None Hx Substance Use Treatment: No Review of Systems - Review of Systems Comments:: General: + chills, no weight or appetite change, + malaise, +body aches HEENT: No changes in vision, no changes in hearing, + congestion, no sore throat CV: No chest pain, no palpitations, no LE edema Pulm: No SOB, + cough, no wheezing GI: No nausea, + vomiting, no change in bowel habits, no melena : No frequency, no urgency, no dysuria Musc: No back pain, no joint swelling, no recent injury Skin: No rash, no lesions, no erythema Endo: No excessive thirst, no heat/cold intolerance Heme: No unusual bruising or bleeding, no swollen glands Neuro: No syncope, no numbness/tingling, no focal weakness Vasc: No claudication Psych: No recent change in mood, no SI or HI *Physical Exam - Vital Signs Last Vital Signs Temp Pulse Resp BP Pulse Ox 98.9 F 108 H 17 108/71 99 04/30/19 04:25 04/30/19 04:25 04/30/19 04:25 04/30/19 04:25 04/30/19 04:25 - Physical Exam General: Comfortable, no acute distress HEENT: PERRL, EOMI, MMM, voice normal, no pharyngeal erythema or exudates Cards: RRR, no murmur appreciated Pulm: Comfortable on room air, clear to auscultation bilaterally. +productive cough observed Abd: Soft, nontender, nondistended Ext: Atraumatic. No LE edema, WWP Skin: Normal color, no rashes or lesions Neuro: A&Ox3, CN grossly intact, normal speech, motor/sensory grossly intact and symmetric Psych: Mood appropriate to situation Medical Decision Making - Medical Decision Making 04/30/19 05:35 Bree Camp is a 24yo otherwise healthy woman who presents to the ED with 2 days of body aches, chills, productive cough, postnasal drip, and congestion. She additionally reports one episode of vomiting after prolonged coughing, but she otherwise denies nausea or change in bowel habits. She has not had a measured fever at home, but she has not checked. She reports that her boyfriend had similar symptoms last week. 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 - Overall well appearing - May be influenza, but would not qualify for treatment - Following lengthy discussion, pt decided not to be tested for flu - Will give ibuprofen for body aches - Will provide detailed instructions for home care, follow up, return precautions. Discharge - Discharge Information Problems reviewed: Yes Clinical Impression/Diagnosis: Influenza-like illness Condition: Stable Disposition: HOME - Admission No - Follow up/Referral Referrals: [facility] [Provider Group] - Patient Discharge Instructions Patient Printed Discharge Instructions: DI for Viral Upper Respiratory Infection -- Adult Additional Instructions: Discharge Instructions: You were seen in the emergency department for cough, body aches, congestion, and chills. Your symptoms are most likely caused by a viral infection such as the common cold. You should feel better within a week without any additional treatment. Home Care and Follow Up: - Make sure you are drinking plenty of fluids while you are sick. Increase your normal fluid intake. It is OK if you do not feel like eating as long as you are staying well hydrated - You may use medications such as acetaminophen (Tylenol) 650-1000mg or ibuprofen (Advil, Motrin) 400-600mg every 6 hours as needed for pain or fever over 101F - Consider placing a humidifier in your room overnight to help relieve congestion and reduce drying of your nose and mouth. - Use throat lozenges (cough drops) for sore throat or cough - If you use additional cold medications, make sure they do not contain medicines you are already taking such as acetaminophen or ibuprofen - You should feel better within a week, though cough can sometimes last longer. If you are not feeling better in a week, follow up with your primary doctor. If you need to see a new doctor, you have been referred to the [facility] primary [facility]. - Seek immediate care if you have worsening symptoms, you are unable to stay hydrated, you develop high fevers over 104F that do not come down with medication, or you have any other medical emergency. - Post Discharge Activity Work/Back to School Note: Back to Work
--- NOTE | 2019-04-30 06:01 | PDOC ---
Attending Attestation - Resident Resident Name: Rufina Ashby - ED Attending Attestation I have performed the following: I have examined & evaluated the patient, The case was reviewed & discussed with the resident, I agree w/resident's findings & plan, Exceptions are as noted - HPI HPI: 04/30/19 06:48 See resident HPI - Physicial Exam PE: 04/30/19 06:48 Agree with documented exam - Medical Decision Making 04/30/19 06:48 24F NEREIDA with sick contact symptomatic tx re-eval symptomatically improved dc
[2019-04-30 06:10] VITALS: BP 113/75; PULSE 89
== END 2019-04-30 06:11 | disposition home or self-care (01) ==
LOC: JER 04:25
DX: J11.1 Influenza due to unidentified influenza virus with other respiratory manifestations (principal)
CPT/HCPCS: 99281-25

== ENCOUNTER 2019-05-15 09:06 | Emergency (ER) | payer OTHER ==
[2019-05-15 09:14] VITALS: BP 109/56; PULSE 86; TEMP 98; BMI 17.4
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
[2019-05-15] MEDS ORDERED: IBUPROFEN 600 MG TABLET (FP) PO ONE ×2 (09:54→09:59)
== END 2019-05-15 10:09 | disposition home or self-care (01) ==
LOC: JERFT 09:06
DX: S69.81XA Other specified injuries of right wrist, hand and finger(s), initial encounter (principal); M79.641 Pain in right hand; W22.09XA Striking against other stationary object, initial encounter; Y93.89 Activity, other specified; Y92.89 Other specified places as the place of occurrence of the external cause; Y99.8 Other external cause status
CPT/HCPCS: 73130-TC-RT-FY; 99282-25

== ENCOUNTER 2019-05-18 23:23 | Emergency (ER) | payer OTHER ==
[2019-05-18 23:38] VITALS: BP 102/43; PULSE 75; TEMP 98.1; BMI 17.4
--- NOTE | 2019-05-19 02:21 | PDOC ---
History of Present Illness - General Chief Complaint: Vaginal Bleeding Stated Complaint: /VAGINAL BLEEDING Time Seen by Provider: 05/19/19 02:20 - History of Present Illness Initial Comments: 05/19/19 02:20 Ms. Camp is a 24 yo female LMP 04/15/19 w/ no pmh who presents for evaluation of vaginal bleeding x1 day. Patient reports she feels well however took a home test with her bleeding which was positive. Denies any complaints at this time. The patient denies chest pain, shortness of breath, headache and dizziness. Denies fever, chills, nausea, vomit, diarrhea and constipation. Denies dysuria, frequency, urgency and hematuria. Past History - Past Medical History Allergies/Adverse Reactions: Allergies Allergy/AdvReac Type Severity Reaction Status Date / Time No Known Allergies Allergy Verified 05/18/19 23:38 Home Medications: Ambulatory Orders Albuterol 0.083% Nebulizer Adriana [Ventolin 0.083% Nebulizer Soln -] 1 neb NEB Q4H #20 vial 01/21/19 Guaifenesin AC [Robitussin AC] 10 ml PO Q8H #200 ml MDD 3 01/21/19 Pseudoephedrine HCl 30 mg PO TID #21 tablet 01/21/19 predniSONE [Deltasone -] 40 mg PO DAILY #8 tablet 01/21/19 Ibuprofen 600 mg PO Q6H #30 tablet 05/15/19 Asthma: No Cancer: No Cardiac Disorders: No COPD: No Diabetes: No HTN: No Seizures: No Thyroid Disease: No - Surgical History Abdominal Surgery: Yes (HERNIA REPAIR) - Reproductive History Is Patient Now?: Yes - Immunization History Immunization Up to Date: Yes - Psycho Social/Smoking Cessation Hx Smoking History: Never smoked Have you smoked in the past 12 months: No Number of Cigarettes Smoked Daily: 0 Hx Alcohol Use: No Drug/Substance Use Hx: Yes (marijuana) Substance Use Type: None Hx Substance Use Treatment: No Review of Systems - Review of Systems Comments:: 05/19/19 02:21 GENERAL/CONSTITUTIONAL: No fever or chills. No weakness. HEAD, EYES, EARS, NOSE AND THROAT: No change in vision. No ear pain or discharge. No sore throat. CARDIOVASCULAR: No chest pain or shortness of breath RESPIRATORY: No cough, wheezing, or hemoptysis. GASTROINTESTINAL: No nausea, vomiting, diarrhea or constipation. GENITOURINARY: No dysuria, frequency, or change in urination. MUSCULOSKELETAL: No joint or muscle swelling or pain. No neck or back pain. SKIN: No rash NEUROLOGIC: No headache, vertigo, loss of consciousness, or change in strength/ sensation. ENDOCRINE: No increased thirst. No abnormal weight change HEMATOLOGIC/LYMPHATIC: No anemia, easy bleeding, or history of blood clots. ALLERGIC/IMMUNOLOGIC: No hives or skin allergy. *Physical Exam - Vital Signs Last Vital Signs Temp Pulse Resp BP Pulse Ox 98.1 F 75 18 102/43 L 99 05/18/19 23:36 05/18/19 23:36 05/18/19 23:36 05/18/19 23:36 05/18/19 23:36 - Physical Exam 05/19/19 02:21 GENERAL: Awake, alert, and fully oriented, in no acute distress HEAD: No signs of trauma, normocephalic, atraumatic EYES: PERRLA, EOMI, sclera anicteric, conjunctiva clear ENT: Auricles normal inspection, hearing grossly normal, nares patent, oropharynx clear without exudates. Moist mucosa NECK: Normal ROM, supple, no lymphadenopathy, JVD, or masses LUNGS: No distress, speaks full sentences, clear to auscultation bilaterally HEART: Regular rate and rhythm, normal S1 and S2, no murmurs, rubs or gallops, peripheral pulses normal and equal bilaterally. ABDOMEN: Soft, nontender, normoactive bowel sounds. No guarding, no rebound. No masses EXTREMITIES: Normal inspection, Normal range of motion, no edema. No clubbing or cyanosis. NEUROLOGICAL: Cranial nerves II through XII grossly intact. Normal speech, normal gait, no focal sensorimotor deficits SKIN: Warm, Dry, normal turgor, no rashes or lesions noted. VAGINAL: +Blood noted in vaginal vault. No CMT, no adnexal tenderness, OS closed. ED Treatment Course - LABORATORY CBC & Chemistry Diagram: 05/19/19 03:16 05/19/19 03:16 Medical Decision Making - Medical Decision Making 05/19/19 03:02 Ms. Camp is a 24 yo female w/ pmh as described who presents for evaluation of symptoms concerning for menses vs. vs. other pelvic process. Patient evaluated with US as well as labs as below. US negative for acute process. Labs grossly wnl as below. Patient either completed or having menses at this time. No concern for acute process. Discharging to home. Discharge - Discharge Information Problems reviewed: Yes Clinical Impression/Diagnosis: Vaginal bleeding Disposition: HOME - Follow up/Referral Referrals: Pina Roach MD [Primary Care Provider] - - Patient Discharge Instructions Patient Printed Discharge Instructions: DI for Vaginal Bleeding Additional Instructions: You were evaluated today in the ER for your bleeding. We performed ultrasound which was negative as well as laboratory evaluation which was normal. We do not believe anything is occurring at this time. Please follow-up as needed with OB/ PURCH[facility] EXPEDITOR for further evaluation. Return to ER if any fever, chills, pain, or other concerning symptoms. - Post Discharge Activity
--- NOTE | 2019-05-19 02:23 | PDOC ---
Attending Attestation - Resident Resident Name: Richie David - ED Attending Attestation I have performed the following: I have examined & evaluated the patient, The case was reviewed & discussed with the resident, I agree w/resident's findings & plan - HPI HPI: 05/19/19 03:26 see resident hpi - Physicial Exam PE: 05/19/19 03:26 agree with resident exam - Medical Decision Making 05/19/19 03:26 24-year-old female with bleeding and positive Ultrasound shows no IUP At this time there is of unknown location versus completed AB Labs including type and screen Patient will follow-up with her regular [facility]
[2019-05-19 03:11] LABS: EPI CELLS 2.1 /HPF (0-5/HPF); HYALINE CASTS 2 /lpf (0-8); PH,URINE 8.5 (5.0-8.0); URINE APPEARANCE TURBID; URINE BACTERIA 197.2 /hpf (NEGATIVE); URINE BILIRUBIN NEGATIVE (NEGATIVE); URINE COLOR YELLOW; URINE GLUCOSE (UA) NEGATIVE (NEGATIVE); URINE KETONE NEGATIVE (NEGATIVE); URINE LEUK ESTERASE NEGATIVE (NEGATIVE); URINE NITRITE NEGATIVE (NEGATIVE); URINE PROTEIN NEGATIVE (NEGATIVE); URINE RBC 6 /hpf (0-4); URINE WBC 2 /hpf (0-5)
[2019-05-19 03:53] LABS: BASO % 0.6 % (0-2.0); EOS % 0.3 % (0-4.5); HEMATOCRIT 33.9 % (32.4-45.2); HEMOGLOBIN 10.9 GM/dL (10.7-15.3); LYMPH % 16.5 % (8-40); MCH 23.9 pg (25.7-33.7); MCHC 32.1 g/dl (32.0-36.0); MEAN CELL VOLUME 74.4 fl (80-96); MEAN PLT VOLUME 9.2 fl (7.5-11.1); MONO % 4.4 % (3.8-10.2); NEUT % 78.2 % (42.8-82.8); PLATELET COUNT 370 K/MM3 (134-434); RBC 4.55 M/mm3 (3.60-5.2)
[2019-05-19 04:28] LABS: ANION GAP 5 MMOL/L (8-16); BILIRUBIN,TOTAL 0.2 mg/dL (0.2-1); BLOOD UREA NITROGEN 9.5 mg/dL (7-18); CALCIUM 8.9 mg/dL (8.5-10.1); CHLORIDE 107 mmol/L (98-107); CO2 28 mmol/L (21-32); CREATININE 0.7 mg/dL (0.55-1.3); GLUCOSE,RANDOM 93 mg/dL (74-106); POTASSIUM 4.1 mmol/L (3.5-5.1); SGOT/AST 18 U/L (15-37); SGPT/ALT 20 U/L (13-61); SODIUM 140 mmol/L (136-145); TOT PROT 7.7 g/dl (6.4-8.2)
[2019-05-19 04:29] LABS: ALK PHOS 103 U/L (45-117)
== END 2019-05-19 04:36 | disposition home or self-care (01) ==
LOC: JER 23:23
DX: O26.891 Other specified pregnancy related conditions, first trimester (principal); O20.8 Other hemorrhage in early pregnancy; Z3A.01 Less than 8 weeks gestation of pregnancy
CPT/HCPCS: 36415; 76817-TC; 80053; 81003; 84702; 85025; 86850; 86900; 86901; 87086; 87186; 99283-25

== ENCOUNTER 2019-06-14 11:08 | Emergency (ER) | payer OTHER ==
[2019-06-14 11:31] VITALS: BP 107/59; PULSE 91; TEMP 98.2; BMI 17.4
[2019-06-14] MEDS ORDERED: ACETAMINOPHEN 1000 MG/100 ML VIAL (NON FORMULARY) IVPB ONE (12:02)
[2019-06-14] MEDS ORDERED: SODIUM CHLORIDE 1,000 ML IV STA (12:02)
[2019-06-14] MEDS ORDERED: ONDANSETRON 4 MG/2 ML VIAL IVPUSH ONE (12:02)
--- NOTE | 2019-06-14 12:05 | PDOC ---
History of Present Illness - General Chief Complaint: Pain Stated Complaint: FOOD POISONING Time Seen by Provider: 06/14/19 11:59 History Source: Patient - History of Present Illness Timing/Duration: reports: constant Quality: reports: cramping Abdominal Pain Onset Location: reports: generalized abdomen Past History - Past Medical History Allergies/Adverse Reactions: Allergies Allergy/AdvReac Type Severity Reaction Status Date / Time No Known Allergies Allergy Verified 06/14/19 11:28 Home Medications: Ambulatory Orders Acetaminophen [Tylenol] 650 mg PO Q6H #30 capsule 06/14/19 Ondansetron HCl [Zofran] 4 mg PO Q8H #10 tablet 06/14/19 Asthma: No Cancer: No Cardiac Disorders: No COPD: No Diabetes: No HTN: No Seizures: No Thyroid Disease: No - Surgical History Abdominal Surgery: Yes (HERNIA REPAIR) - Immunization History Immunization Up to Date: Yes - Psycho Social/Smoking Cessation Hx Smoking History: Never smoked Have you smoked in the past 12 months: No Number of Cigarettes Smoked Daily: 0 Hx Alcohol Use: No Drug/Substance Use Hx: No Substance Use Type: None Hx Substance Use Treatment: No Review of Systems - Review of Systems Constitutional: No: Chills, Fever ABD/GI: Yes: Diarrhea, Nausea, Vomiting, Abdominal cramping : No: Dysuria *Physical Exam - Vital Signs Last Vital Signs Temp Pulse Resp BP Pulse Ox 98.2 F 91 H 17 107/59 L 100 06/14/19 11:29 06/14/19 11:29 06/14/19 11:29 06/14/19 11:29 06/14/19 11:29 - Physical Exam General Appearance: Yes: Appropriately Dressed, Mild Distress HEENT: positive: Normal Voice Neck: positive: Supple Respiratory/Chest: negative: Respiratory Distress Gastrointestinal/Abdominal: positive: Normal Bowel Sounds, Tender (diffuse ttp) , Soft. negative: Distended, Guarding, Rebound Musculoskeletal: negative: CVA Tenderness Integumentary: positive: Dry, Warm Neurologic: positive: Fully Oriented, Alert, Normal Mood/Affect ED Treatment Course - LABORATORY CBC & Chemistry Diagram: 06/14/19 12:30 06/14/19 12:30 Medical Decision Making - Medical Decision Making 06/14/19 12:00 24-year-old female, no significant history here with nausea, vomiting diarrhea and abdominal pain x3 days. States she is had numerous episodes of vomiting and has not been able to keep anything down. Had 3 episodes of diarrhea this a.m. No bright red blood per rectum fever or chills. States she ate at [email or web address] prior to symptoms and that her friends who also ate at the [employer] all have the same symptoms per patient see exam M/l gastroenteritis, less likely appy +sick contacts, no travel [place] uncomfortable but stable, w/ diffuse ttp on abd exam -symptomatic tx -IVF -labs -reassess 06/14/19 13:49 Labs unremarkable. Patient reports feeling significantly better with meds and IV fluids. Abdomen benign on repeat exam. Will dc with supportive treatment. Reasons to return to ER discussed with patient 06/14/19 13:51 Discharge - Discharge Information Problems reviewed: Yes Clinical Impression/Diagnosis: Gastroenteritis Disposition: HOME - Additional Discharge Information Prescriptions: Acetaminophen [Tylenol] 650 mg PO Q6H #30 capsule Ondansetron HCl [Zofran] 4 mg PO Q8H #10 tablet - Follow up/Referral Referrals: Pina Roach MD [Primary Care Provider] - - Patient Discharge Instructions Patient Printed Discharge Instructions: DI for Viral Gastroenteritis -- Adult Additional Instructions: Rest, maintain adequate hydration and take meds as directed If symptoms persist and or worsen, return to the ER - Post Discharge Activity Work/Back to School Note: Back to Work
[2019-06-14] MEDS ORDERED: ACETAMINOPHEN INJECTION 100 ML IVPB ONE (12:16)
[2019-06-14] MEDS ORDERED: ONDANSETRON 4 MG/2 ML VIAL ONE (12:16)
[2019-06-14 12:45] LABS: BASO % 0.7 % (0-2.0); EOS % 0.3 % (0-4.5); HEMATOCRIT 34.5 % (32.4-45.2); HEMOGLOBIN 11.2 GM/dL (10.7-15.3); LYMPH % 15.9 % (8-40); MCHC 32.6 g/dl (32.0-36.0); MEAN CELL VOLUME 73.6 fl (80-96); MEAN PLT VOLUME 8.8 fl (7.5-11.1); MONO % 12.4 % (3.8-10.2); NEUT % 70.7 % (42.8-82.8); PLATELET COUNT 364 K/MM3 (134-434); RBC 4.69 M/mm3 (3.60-5.2); RDW 18.3 % (11.6-15.6); WHITE BLOOD COUNT 4.8 K/mm3 (4.0-10.0)
[2019-06-14 13:11] LABS: ALBUMIN 4.1 g/dl (3.4-5.0); BILIRUBIN,TOTAL 0.3 mg/dL (0.2-1); BLOOD UREA NITROGEN 11.8 mg/dL (7-18); CALCIUM 8.8 mg/dL (8.5-10.1); CREATININE 0.7 mg/dL (0.55-1.3); POTASSIUM 3.7 mmol/L (3.5-5.1); TOT PROT 7.8 g/dl (6.4-8.2)
== END 2019-06-14 13:42 | disposition home or self-care (01) ==
LOC: JER 11:08
PROC: 3E033NZ Introduction of Analgesics, Hypnotics, Sedatives into Peripheral Vein, Percutaneous Approach (ICD-10-PCS; principal; 2019-06-14)
PROC: 3E033GC Introduction of Other Therapeutic Substance into Peripheral Vein, Percutaneous Approach (ICD-10-PCS; 2019-06-14)
DX: K52.9 Noninfective gastroenteritis and colitis, unspecified (principal)
CPT/HCPCS: 36415; 80053; 83690; 84703; 85025; 96374; 96375; 99284-25; J0131; J7030

== ENCOUNTER 2019-10-27 17:28 | Emergency (ER) | payer OTHER ==
[2019-10-27 17:34] VITALS: BMI 17.4
--- NOTE | 2019-10-27 17:34 | PDOC ---
Rapid Medical Evaluation Time Seen by Provider: 10/27/19 17:31 Medical Evaluation: Allergies Allergy/AdvReac Type Severity Reaction Status Date / Time No Known Allergies Allergy Verified 06/14/19 11:28 10/27/19 17:31 24 year old female no pmhx presenting with lower abdominal pain since last friday worsening this morning now with nausea and vomiting. had appt with OBGYN tmr. No dysuria, flank pain, fever, chills Pe TTP over lower quadrants and suprapubic region Plan UA UC Upreg TVUS CBC CMP T&S Pt to precede to ED for further evaluation and treatment at the discretion of the provider in the ED
[2019-10-27 18:06] LABS: BASO % 0.6 % (0-2.0); EOS % 0.2 % (0-4.5); HEMATOCRIT 31.8 % (32.4-45.2); HEMOGLOBIN 10.1 GM/dL (10.7-15.3); LYMPH % 10.4 % (8-40); MCH 23.4 pg (25.7-33.7); MCHC 31.6 g/dl (32.0-36.0); MEAN CELL VOLUME 73.8 fl (80-96); MONO % 5.5 % (3.8-10.2); NEUT % 83.3 % (42.8-82.8); PLATELET COUNT 340 K/MM3 (134-434); RBC 4.31 M/mm3 (3.60-5.2); RDW 18.1 % (11.6-15.6); WHITE BLOOD COUNT 12.1 K/mm3 (4.0-10.0)
[2019-10-27 18:15] LABS: HCG,QUALITATIVE URINE Negative
[2019-10-27 18:17] LABS: EPI CELLS >36 /uL (0-25.1); HYALINE CASTS 3 /uL (0-3.1); URINE APPEARANCE CLEAR; URINE BACTERIA 2784 /uL (0-1359); URINE BILIRUBIN NEGATIVE (NEGATIVE); URINE COLOR YELLOW; URINE GLUCOSE (UA) NEGATIVE (NEGATIVE); URINE KETONE 2+ (NEGATIVE); URINE LEUK ESTERASE TRACE (NEGATIVE); URINE NITRITE NEGATIVE (NEGATIVE); URINE PROTEIN TRACE (NEGATIVE); URINE RBC 26 /uL (0-23.9); URINE WBC 44 /uL (0-25.8)
[2019-10-27] MEDS ORDERED: SODIUM CHLORIDE 0.9% 500 ML INFUS.BAG IV ONE (18:25)
--- NOTE | 2019-10-27 18:28 | PDOC ---
History of Present Illness - General Chief Complaint: Pain, Acute Stated Complaint: STOMACH PAIN Time Seen by Provider: 10/27/19 17:31 - History of Present Illness Initial Comments: 10/27/19 18:26 24 y/o F with pelvic pain and lower abdominal pain x1 week. Past History - Medical History Allergies/Adverse Reactions: Allergies Allergy/AdvReac Type Severity Reaction Status Date / Time No Known Allergies Allergy Verified 06/14/19 11:28 Home Medications: Ambulatory Orders Acetaminophen [Tylenol] 650 mg PO Q6H #30 capsule 06/14/19 Ondansetron HCl [Zofran] 4 mg PO Q8H #10 tablet 06/14/19 Asthma: No Cancer: No Cardiac Disorders: No COPD: No Diabetes: No HTN: No Seizures: No Thyroid Disease: No - Surgical History Abdominal Surgery: Yes (HERNIA REPAIR) - Immunization History Immunization Up to Date: Yes - Psycho-Social/Smoking History Smoking History: Current every day smoker Have you smoked in the past 12 months: Yes Number of Cigarettes Smoked Daily: 0 Information on smoking cessation initiated: No - Substance Abuse Hx (Audit-C & DAST Scrn) How often the patient has a drink containing alcohol: Never Score: In Men: 4 or > Positive; In Women: 3 or > Positive: 0 Screen Result (Pos requires Nsg. Audit-10AR): Negative In the last yr the pt used illegal drug/Rx for NonMed reason: No Score: Yes response is considered Positive: 0 Screen Result (Positive result requires Nsg. DAST-10): Negative Review of Systems - Review of Systems Constitutional: Yes: Chills, Malaise, Night Sweats. No: Fever ABD/GI: Yes: Nausea. No: Constipated, Diarrhea, Vomiting : Yes: Frequency, Urgency. No: Burning, Dysuria, Discharge Musculoskeletal: No: Back Pain *Physical Exam - Vital Signs Last Vital Signs Temp Pulse Resp BP Pulse Ox 98.6 F 94 H 18 102/53 L 97 10/27/19 17:32 10/27/19 17:32 10/27/19 17:32 10/27/19 17:32 10/27/19 17:32 - Physical Exam General Appearance: Yes: Nourished, Appropriately Dressed. No: Apparent Distress, Disheveled HEENT: positive: Symmetrical Neck: positive: Supple Respiratory/Chest: positive: Normal Breath Sounds. negative: Respiratory Distress Female Pelvic Exam: positive: other (Pelvic examination done with female nurse in the room for the entire examination. Cervical office is closed right adnexal tenderness left adnexa is nontender. Speculum exam not done.) Gastrointestinal/Abdominal: positive: Tender, Tenderness, Other (Right and Left LQ's) Musculoskeletal: positive: Normal Inspection Extremity: positive: Normal Inspection Integumentary: positive: Normal Color, Dry, Warm Neurologic: positive: advertising supervisor II-XII NML intact ED Treatment Course - LABORATORY CBC & Chemistry Diagram: 10/27/19 17:48 10/27/19 17:48 - ADDITIONAL ORDERS Additional order review: Laboratory Results 10/27/19 17:48 Urine Color Yellow Urine Appearance Clear Urine pH 5.0 D Ur Specific [place] 1.027 Urine Protein Trace Urine Glucose (UA) Negative Urine Ketones 2+ H Urine Blood 2+ H Urine Nitrite Negative Urine Bilirubin Negative Urine Urobilinogen 1.0 Ur Leukocyte Esterase Trace Urine WBC (Auto) 44 Urine RBC (Auto) 26 Urine Casts (Auto) 3 U Epithel Cells (Auto) >36 Urine Bacteria (Auto) 2784 Urine HCG, Qual Negative 10/27/19 17:48 RBC 4.31 MCV 73.8 L MCHC 31.6 L RDW 18.1 H MPV 9.0 Neutrophils % 83.3 H Lymphocytes % 10.4 D Monocytes % 5.5 Eosinophils % 0.2 Basophils % 0.6 Medical Decision Making - Medical Decision Making 10/27/19 22:31 Patient signed out to the main emergency room at this time Discharge - Discharge Information Problems reviewed: Yes Clinical Impression/Diagnosis: UTI (urinary tract infection) Condition: Stable - Follow up/Referral Referrals: Pina Roach MD [Primary Care Provider] - - Patient Discharge Instructions - Post Discharge Activity
[2019-10-27 18:35] LABS: ALBUMIN 4.2 g/dl (3.4-5.0); BILIRUBIN,TOTAL 0.4 mg/dL (0.2-1); BLOOD UREA NITROGEN 9.2 mg/dL (7-18); CREATININE 0.8 mg/dL (0.55-1.3); POTASSIUM 3.5 mmol/L (3.5-5.1); TOT PROT 7.4 g/dl (6.4-8.2)
[2019-10-27] MEDS ORDERED: CEFTRIAXONE 1 GM in DEXTROSE 5%-WATER - 100 ML IVPB ONE (21:24)
[2019-10-27] MEDS ORDERED: KETOROLAC TROMETHAMINE 30 MG/1 ML VIAL IVPUSH ONE (21:27)
[2019-10-27] MEDS ORDERED: KETOROLAC TROMETHAMINE 30 MG/1 ML VIAL ONE (21:31)
[2019-10-27] MEDS ORDERED: CEFTRIAXONE 1 GM/50 ML BAG ONE (21:31)
--- NOTE | 2019-10-27 22:48 | PDOC ---
*Physical Exam - Vital Signs Last Vital Signs Temp Pulse Resp BP Pulse Ox 98.6 F 94 H 18 102/53 L 97 10/27/19 17:32 10/27/19 17:32 10/27/19 17:32 10/27/19 17:32 10/27/19 17:32 - Physical Exam 10/27/19 22:45 Gen: AAOx 3, no acute distress, comfortable, no signs of respiratory distress HENT: atraumatic, normocephalic with no laceration or contusion. Nasal mucosa without erythema. Oropharynx without erythema or exudates. Mucous membranes moist. CV: RRR no murmurs, gallops, or rubs. CHEST: CTA b/l no wheezing, rales or rhonchi ABD: +BS/ND. TTP over LLQ and RLQ as well as suprapubic region; soft, no rebound, no guarding -CVAT EXTREMITY: no cyanosis or erythema. 2+ dorsalis pedis, posterior tibial, and radial pulse. No pedal edema; no calf swelling or tenderness SKIN: no rash, warm and dry, no diaphoresis HEME: no purpura or ecchymosis NEURO: normal speech, CN II-XII intact, sensation intact, normal gait, no cerebellar deficits MS: 5/5 strength in all extremities, FROM intact in all extremities. ED Treatment Course - LABORATORY CBC & Chemistry Diagram: 10/27/19 17:48 10/27/19 17:48 - ADDITIONAL ORDERS Additional order review: Laboratory Results 10/27/19 10/27/19 17:48 17:48 Sodium 140 Potassium 3.5 Chloride 108 H Carbon Dioxide 24 Anion Gap 8 BUN 9.2 Creatinine 0.8 Est GFR (CKD-EPI)AfAm 120.44 Est GFR (CKD-EPI)NonAf 103.92 Random Glucose 106 Calcium 9.0 Total Bilirubin 0.4 AST 13 L ALT 13 Alkaline Phosphatase 89 Total Protein 7.4 Albumin 4.2 Urine Color Yellow Urine Appearance Clear Urine pH 5.0 D Ur Specific [place] 1.027 Urine Protein Trace Urine Glucose (UA) Negative Urine Ketones 2+ H Urine Blood 2+ H Urine Nitrite Negative Urine Bilirubin Negative Urine Urobilinogen 1.0 Ur Leukocyte Esterase Trace Urine WBC (Auto) 44 Urine RBC (Auto) 26 Urine Casts (Auto) 3 U Epithel Cells (Auto) >36 Urine Bacteria (Auto) 2784 Urine HCG, Qual Negative 10/27/19 17:48 RBC 4.31 MCV 73.8 L MCHC 31.6 L RDW 18.1 H MPV 9.0 Neutrophils % 83.3 H Lymphocytes % 10.4 D Monocytes % 5.5 Eosinophils % 0.2 Basophils % 0.6 - Medications Given in the ED: ED Medications Discontinued Medications Generic Name Dose Route Start Last Admin Trade Name Freq PRN Reason Stop Dose Admin Ceftriaxone Sodium 1 gm/ 100 mls @ 200 mls/hr 10/27/19 21:24 10/27/19 21:36 Dextrose IVPB 10/27/19 21:53 200 mls/hr ONCE ONE Administration Ketorolac Tromethamine 30 mg 10/27/19 21:27 10/27/19 21:35 Toradol Injection - IVPUSH 10/27/19 21:28 30 mg ONCE ONE Administration Sodium Chloride 2,000 ml 10/27/19 18:25 10/27/19 19:25 Normal Saline - IV 10/27/19 18:26 2,000 ml ONCE ONE Administration Medical Decision Making - Medical Decision Making 10/27/19 22:46 Pt signed out to me pending CT and US reads. WBC 12.1 anemic to 10.1/31 +UA rest of labs noncontributory. Will reassess based on results Transvaginal ultrasound shows no Doppler evidence of ovarian torsion the right ovary appears unremarkable demonstrating several subcentimeter follicles a 1.2 cm left ovarian follicle cyst is seen containing intraluminal debris/blood CT shows no evidence of obstructive uropathy or urolithiasis In comparison to prior CT exams interval development of a 2 mm nonobstructive right renal calculus is seen Note is made of possible mildly increased perivesicular fat soft tissue stranding questionably due to current or previous inflammation if there is ongoing pelvic symptomatology MRI evaluation is suggested not on a nonemergent basis. Pt has mild white count with positive UA in presence of 2mm nonobstructive stone, pt given one dose of IV ABX here. 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 Explained to pt findings of CT and US and pt agrees and understands need to follow up without fail as well as the need to return to the ED for any worsening symptoms. Strict return precautions given. Meds sent to pts preferred pharmacy and pt understands to take ABX to completion even if feeling better. Pt is safe and stable for discharge with close follow up. Supportive care instructions explained and given to pt. Reasons to return emergently to ER explained and given. Importance of follow up with PMD and other specialists as indicated stressed to pt. Pt verbalized understanding of instructions. Pt to follow up with PMD in 2 days. Discharge - Discharge Information Problems reviewed: Yes Clinical Impression/Diagnosis: Kidney stone UTI (urinary tract infection) Qualifiers: Urinary tract infection type: acute cystitis Hematuria presence: with hematuria Qualified Code(s): N30.01 - Acute cystitis with hematuria Condition: Stable Disposition: HOME - Admission No - Additional Discharge Information Prescriptions: Cephalexin [Keflex] 500 mg PO QID #28 capsule - Follow up/Referral Referrals: Pina Roach MD [Primary Care Provider] - Boris Carlton MD [Non Staff, Medical] - Gladis Carlton MD [Staff Physician] - - Patient Discharge Instructions Patient Printed Discharge Instructions: DI for Kidney Stones, DI for Urinary Tract Infection (UTI) Additional Instructions: YOU MUST FOLLOW UP WITH YOUR PCP as well as OCCUPATIONAL NURSE and urology - Post Discharge Activity
[2019-10-28 06:03] VITALS: BP 112/67; PULSE 71; TEMP 98.3
== END 2019-10-27 23:28 | disposition home or self-care (01) ==
LOC: JER 17:28
PROC: 3E03329 Introduction of Other Anti-infective into Peripheral Vein, Percutaneous Approach (ICD-10-PCS; principal; 2019-10-27)
PROC: 3E033GC Introduction of Other Therapeutic Substance into Peripheral Vein, Percutaneous Approach (ICD-10-PCS; 2019-10-27)
DX: N30.01 Acute cystitis with hematuria (principal)
CPT/HCPCS: 36415; 74176-TC; 76830-TC; 80053; 81003; 84703; 85025; 87086; 87186; 99285-25; Q9967

== ENCOUNTER 2020-05-25 00:07 | Emergency (ER) | payer OTHER ==
[2020-05-25 01:21] VITALS: BP 113/62; PULSE 98; TEMP 98.2; BMI 16.8
[2020-05-25 02:11] LABS: HEMOGLOBIN 9.9 GM/dL (10.7-15.3); MCH 22.4 pg (25.7-33.7); MCHC 31.8 g/dl (32.0-36.0); MEAN CELL VOLUME 70.3 fl (80-96); MEAN PLT VOLUME 8.2 fl (7.5-11.1); PLATELET COUNT 385 K/MM3 (134-434); RBC 4.42 M/mm3 (3.60-5.2); RDW 19.1 % (11.6-15.6); WHITE BLOOD COUNT 5.4 K/mm3 (4.0-10.0)
== END 2020-05-25 03:22 | disposition home or self-care (01) ==
LOC: JER 00:07
DX: N94.6 Dysmenorrhea, unspecified (principal)
CPT/HCPCS: 36415; 76817-TC; 84702; 85027; 86850; 86900; 86901; 99284-25

== ENCOUNTER 2020-09-05 16:52 | Emergency (ER) | payer BC, OTHER ==
[2020-09-05 17:09] VITALS: BP 105/69; PULSE 80; TEMP 97.9; BMI 17.9
[2020-09-05] MEDS ORDERED: IBUPROFEN 400 MG TABLET (FP) PO ONE ×2 (18:22→18:23)
== END 2020-09-05 18:28 | disposition home or self-care (01) ==
LOC: JERFT 16:52 → JER 16:52 → JERFT 18:28
DX: S60.221A Contusion of right hand, initial encounter (principal)
CPT/HCPCS: 73130-TC-RT-FY; 99283-25

== ENCOUNTER 2020-11-29 11:55 | Emergency (ER) | payer BC, OTHER ==
[2020-11-29 11:58] VITALS: BP 108/70; PULSE 82; TEMP 98; BMI 17.4
[2020-11-29] MEDS ORDERED: METOCLOPRAMIDE HCL INJECTION 10 MG/2 ML VIAL IVPB ONE (12:36)
[2020-11-29] MEDS ORDERED: METOCLOPRAMIDE HCL INJECTION 10 MG/2 ML VIAL ONE (12:49)
[2020-11-29 13:07] LABS: BASO % 1.2 % (0-2.0); EOS % 0.5 % (0-4.5); HEMATOCRIT 29.1 % (32.4-45.2); HEMOGLOBIN 9.5 GM/dL (10.7-15.3); LYMPH % 6.5 % (8-40); MCH 21.9 pg (25.7-33.7); MCHC 32.4 g/dl (32.0-36.0); MEAN CELL VOLUME 67.6 fl (80-96); MEAN PLT VOLUME 7.9 fl (7.5-11.1); MONO % 15.1 % (3.8-10.2); NEUT % 76.7 % (42.8-82.8); PLATELET COUNT 331 10^3/uL (134-434); RBC 4.31 M/mm3 (3.60-5.2); RDW 19.5 % (11.6-15.6); WHITE BLOOD COUNT 4.3 K/mm3 (4.0-10.0)
[2020-11-29 13:09] LABS: EPI CELLS >36 /uL (0-25.1); HYALINE CASTS 14 /uL (0-3.1); URINE APPEARANCE CLOUDY; URINE BACTERIA 3516 /uL (0-1359); URINE BILIRUBIN NEGATIVE (NEGATIVE); URINE COLOR YELLOW; URINE GLUCOSE (UA) NEGATIVE (NEGATIVE); URINE KETONE 1+ (NEGATIVE); URINE LEUK ESTERASE 2+ (NEGATIVE); URINE NITRITE NEGATIVE (NEGATIVE); URINE PROTEIN TRACE (NEGATIVE); URINE RBC 96 /uL (0-23.9); URINE UROBILINOGEN 0.2 mg/dL (0.2-1.0); URINE WBC 247 /uL (0-25.8)
[2020-11-29 13:17] LABS: HCG,QUALITATIVE URINE Negative
[2020-11-29 13:47] LABS: ALBUMIN 4.2 g/dl (3.4-5.0); CALCIUM 8.8 mg/dL (8.5-10.1)
[2020-11-29 13:48] LABS: BLOOD UREA NITROGEN 6.5 mg/dL (7-18)
[2020-11-29 13:51] LABS: CREATININE 0.7 mg/dL (0.55-1.3)
[2020-11-29 13:52] LABS: BILIRUBIN,TOTAL 0.3 mg/dL (0.2-1); TOT PROT 7.5 g/dl (6.4-8.2)
== END 2020-11-29 15:50 | disposition home or self-care (01) ==
LOC: JER 11:55
PROC: 3E033GC Introduction of Other Therapeutic Substance into Peripheral Vein, Percutaneous Approach (ICD-10-PCS; principal; 2020-11-29)
DX: U07.1 COVID-19 (principal); R51.9 Headache, unspecified; M54.5 Low back pain
CPT/HCPCS: 36415; 70450-TC; 80053; 81003; 84703; 85025; 87086; 87186; 99284-25; C9803; U0003; U0005

== ENCOUNTER 2021-02-19 14:11 | Emergency (ER) | payer BC, OTHER ==
[2021-02-19 14:37] VITALS: BMI 17.4
[2021-02-19] MEDS ORDERED: morphine CARPU-JECT 4 MG/1 ML DISP.SYRIN IVPUSH ONE (17:12)
[2021-02-19] MEDS ORDERED: SODIUM CHLORIDE 1,000 ML IV STA (17:12)
[2021-02-19] MEDS ORDERED: ONDANSETRON 4 MG/2 ML VIAL IVPUSH ONE (17:12)
[2021-02-19] MEDS ORDERED: ONDANSETRON 4 MG/2 ML VIAL ONE (17:37)
[2021-02-19] MEDS ORDERED: morphine SULFATE 4 MG/ML VIAL ONE (17:37)
[2021-02-19 18:18] LABS: BASO % 0.6 % (0-2.0); EOS % 0.2 % (0-4.5); HEMOGLOBIN 9.9 GM/dL (10.7-15.3); LYMPH % 10.4 % (8-40); MCH 21.4 pg (25.7-33.7); MCHC 32.1 g/dl (32.0-36.0); MEAN CELL VOLUME 66.6 fl (80-96); MEAN PLT VOLUME 8.4 fl (7.5-11.1); MONO % 9.3 % (3.8-10.2); NEUT % 79.5 % (42.8-82.8); PLATELET COUNT 363 10^3/uL (134-434); RBC 4.65 M/mm3 (3.60-5.2); RDW 19.3 % (11.6-15.6); WHITE BLOOD COUNT 6.5 K/mm3 (4.0-10.0)
[2021-02-19 18:21] LABS: EPI CELLS >36 /uL (0-25.1); HYALINE CASTS 6 /uL (0-3.1); URINE APPEARANCE CLOUDY; URINE BACTERIA 2829 /uL (0-1359); URINE BILIRUBIN NEGATIVE (NEGATIVE); URINE COLOR YELLOW; URINE GLUCOSE (UA) NEGATIVE (NEGATIVE); URINE KETONE 2+ (NEGATIVE); URINE LEUK ESTERASE 1+ (NEGATIVE); URINE NITRITE NEGATIVE (NEGATIVE); URINE PROTEIN 1+ (NEGATIVE); URINE WBC 134 /uL (0-25.8)
[2021-02-19 18:42] LABS: BLOOD UREA NITROGEN 8.8 mg/dL (7-18); CALCIUM 8.9 mg/dL (8.5-10.1)
[2021-02-19 18:45] LABS: CREATININE 0.8 mg/dL (0.55-1.3)
[2021-02-19 18:47] LABS: BILIRUBIN,TOTAL 0.3 mg/dL (0.2-1); TOT PROT 7.7 g/dl (6.4-8.2)
[2021-02-19 18:57] LABS: ANISOCYTOSIS 1+; OVALOCYTE 2+; PLATELET ESTIMATE ADEQUATE
[2021-02-19 20:04] LABS: URINE RBC 136 /uL (0-23.9)
[2021-02-19] MEDS ORDERED: ACETAMINOPHEN 1000 MG/100 ML VIAL IVPB ONE (21:33)
[2021-02-19] MEDS ORDERED: morphine CARPU-JECT 2 MG/1 ML DISP.SYRIN IVPUSH ONE (22:04)
[2021-02-19] MEDS ORDERED: ACETAMINOPHEN INJECTION 100 ML IVPB ONE (22:29)
[2021-02-19 22:39] VITALS: BP 104/59; PULSE 80; TEMP 98.7
[2021-02-20] MEDS ORDERED: CEFTRIAXONE 1,000 MG in DEXTROSE 5%-WATER - 50 ML IVPB ONE (00:07)
[2021-02-20] MEDS ORDERED: CEFTRIAXONE 1 GM/50 ML BAG ONE (01:35)
== END 2021-02-20 02:17 | disposition home or self-care (01) ==
LOC: JER 14:11
PROC: 3E03329 Introduction of Other Anti-infective into Peripheral Vein, Percutaneous Approach (ICD-10-PCS; principal; 2021-02-19)
PROC: 3E033NZ Introduction of Analgesics, Hypnotics, Sedatives into Peripheral Vein, Percutaneous Approach (ICD-10-PCS; 2021-02-19)
PROC: 3E033GC Introduction of Other Therapeutic Substance into Peripheral Vein, Percutaneous Approach (ICD-10-PCS; 2021-02-19)
PROC: 3E0337Z Introduction of Electrolytic and Water Balance Substance into Peripheral Vein, Percutaneous Approach (ICD-10-PCS; 2021-02-19)
PROC: 3E033GC Introduction of Other Therapeutic Substance into Peripheral Vein, Percutaneous Approach (ICD-10-PCS; 2021-02-19)
PROC: 3E033GC Introduction of Other Therapeutic Substance into Peripheral Vein, Percutaneous Approach (ICD-10-PCS; 2021-02-19)
DX: N10 Acute pyelonephritis (principal)
CPT/HCPCS: 36415; 74176-TC; 76705-TC; 80053; 81003; 83690; 84703; 85025; 87086; 87491; 87591; 99285-25; C9803; J0131; U0003; U0005

== ENCOUNTER 2021-04-28 19:03 | Emergency (ER) | payer BC, OTHER ==
[2021-04-28 19:41] VITALS: BP 101/60; PULSE 65; TEMP 98.4; BMI 18.3
[2021-04-28] MEDS ORDERED: ONDANSETRON 4 MG/2 ML VIAL IVPUSH ONE (20:34)
[2021-04-28] MEDS ORDERED: FAMOTIDINE 20 MG/50 ML IVPB 20 MG/50 ML MG IVPB ONE ×2 (20:34→20:45)
[2021-04-28] MEDS ORDERED: SODIUM CHLORIDE 0.9% 500 ML INFUS.BAG IV ONE (20:34)
[2021-04-28] MEDS ORDERED: ONDANSETRON 4 MG/2 ML VIAL ONE (20:44)
[2021-04-28 21:05] LABS: BASO % 0.3 % (0-2.0); HEMATOCRIT 28.2 % (32.4-45.2); HEMOGLOBIN 8.8 GM/dL (10.7-15.3); LYMPH % 12.3 % (8-40); MCH 20.5 pg (25.7-33.7); MCHC 31.4 g/dl (32.0-36.0); MEAN CELL VOLUME 65.2 fl (80-96); MEAN PLT VOLUME 8.5 fl (7.5-11.1); MONO % 8.9 % (3.8-10.2); NEUT % 78.5 % (42.8-82.8); PLATELET COUNT 393 10^3/uL (134-434); RBC 4.32 M/mm3 (3.60-5.2); RDW 19.3 % (11.6-15.6); WHITE BLOOD COUNT 7.1 K/mm3 (4.0-10.0)
[2021-04-28 21:27] LABS: ANISOCYTOSIS 2+; MACROCYTOSIS 0; PLATELET ESTIMATE NORMAL; TARGET CELLS 1+
[2021-04-28 21:35] LABS: CALCIUM 8.8 mg/dL (8.5-10.1)
[2021-04-28 21:36] LABS: BLOOD UREA NITROGEN 8.9 mg/dL (7-18)
[2021-04-28 21:38] LABS: CREATININE 0.6 mg/dL (0.55-1.3)
[2021-04-28 21:40] LABS: BILIRUBIN,TOTAL 0.5 mg/dL (0.2-1)
== END 2021-04-28 23:07 | disposition home or self-care (01) ==
LOC: JER 19:03
PROC: 3E033GC Introduction of Other Therapeutic Substance into Peripheral Vein, Percutaneous Approach (ICD-10-PCS; principal; 2021-04-28)
PROC: 3E033GC Introduction of Other Therapeutic Substance into Peripheral Vein, Percutaneous Approach (ICD-10-PCS; 2021-04-28)
DX: R11.2 Nausea with vomiting, unspecified (principal); K29.00 Acute gastritis without bleeding
CPT/HCPCS: 36415; 80053; 83690; 85025; 87086; 99284-25

== ENCOUNTER 2021-09-22 23:46 | Emergency (ER) | payer BC, OTHER ==
[2021-09-23] VITALS: BP 104/63; PULSE 82; TEMP 98.2; BMI 16.9
[2021-09-23] MEDS ORDERED: SODIUM CHLORIDE 0.9% 500 ML INFUS.BAG IV ONE (00:19)
[2021-09-23] MEDS ORDERED: ACETAMINOPHEN 1000 MG/100 ML BAG IVPB ONE (00:19)
[2021-09-23] MEDS ORDERED: ACETAMINOPHEN INJECTION 100 ML IVPB ONE (00:41)
[2021-09-23 01:06] LABS: EPI CELLS 23 /uL (0-25.1); HYALINE CASTS 22 /uL (0-3.1); URINE APPEARANCE CLOUDY; URINE BACTERIA >9,000 /uL (0-1359); URINE BILIRUBIN NEGATIVE (NEGATIVE); URINE COLOR YELLOW; URINE GLUCOSE (UA) NEGATIVE (NEGATIVE); URINE KETONE TRACE (NEGATIVE); URINE LEUK ESTERASE 2+ (NEGATIVE); URINE NITRITE POSITIVE (NEGATIVE); URINE PROTEIN 1+ (NEGATIVE); URINE RBC 31 /uL (0-23.9); URINE UROBILINOGEN 0.2 mg/dL (0.2-1.0); URINE WBC 829 /uL (0-25.8)
[2021-09-23 01:07] LABS: EOS % 1.4 % (0-4.5); HEMATOCRIT 28.2 % (32.4-45.2); LYMPH % 23.7 % (8-40); MCH 21.5 pg (25.7-33.7); MCHC 31.9 g/dl (32.0-36.0); MEAN CELL VOLUME 67.6 fl (80-96); MEAN PLT VOLUME 8.7 fl (7.5-11.1); MONO % 6.9 % (3.8-10.2); PLATELET COUNT 353 10^3/uL (134-434); RBC 4.17 M/mm3 (3.60-5.2); RDW 19.7 % (11.6-15.6); WHITE BLOOD COUNT 7.3 K/mm3 (4.0-10.0)
[2021-09-23 01:09] LABS: HCG,QUALITATIVE URINE Negative
[2021-09-23 01:22] LABS: ALBUMIN 3.8 g/dl (3.4-5.0); BLOOD UREA NITROGEN 12.3 mg/dL (7-18)
[2021-09-23 01:25] LABS: CREATININE 0.7 mg/dL (0.55-1.3)
[2021-09-23] MEDS ORDERED: CEFTRIAXONE 1 GM in DEXTROSE 5%-WATER - 100 ML IVPB ONE (01:26)
[2021-09-23 01:27] LABS: BILIRUBIN,TOTAL 0.2 mg/dL (0.2-1)
[2021-09-23] MEDS ORDERED: CEFTRIAXONE 1 GM/50 ML BAG ONE (01:34)
[2021-09-23 02:32] LABS: ANISOCYTOSIS 2+; HOWELL-JOLLY BODIES 1+; MACROCYTOSIS 0
== END 2021-09-23 03:15 | disposition home or self-care (01) ==
LOC: JER 23:46
PROC: 3E0333Z Introduction of Anti-inflammatory into Peripheral Vein, Percutaneous Approach (ICD-10-PCS; principal; 2021-09-22)
PROC: 3E03329 Introduction of Other Anti-infective into Peripheral Vein, Percutaneous Approach (ICD-10-PCS; 2021-09-22)
DX: N30.00 Acute cystitis without hematuria (principal)
CPT/HCPCS: 36415; 80053; 81003; 84703; 85025; 87086; 87186; 99284-25

== ENCOUNTER 2021-11-05 05:15 | Day surgery (SDC) | payer BC, OTHER ==
[2021-11-01 10:23] VITALS: BMI 17.4
[2021-11-05 09:25] VITALS: RESP 20
[2021-11-05] MEDS ORDERED: PROPOFOL 20 ML ONE (10:47)
[2021-11-05] MEDS ORDERED: MIDAZOLAM HCL 2 MG/2 ML SINGLE DOSE VIAL ONE (10:47)
[2021-11-05] MEDS ORDERED: KETOROLAC TROMETHAMINE 30 MG/1 ML VIAL ONE (10:47)
[2021-11-05 14:08] VITALS: BP 104/72; PULSE 84; TEMP 98.5
== END 2021-11-05 14:31 | disposition home or self-care (01) ==
LOC: JASU-SURG 05:15
PROVIDERS: ATTEND Urology
PROC: 0TF4XZZ Fragmentation in Left Kidney Pelvis, External Approach (ICD-10-PCS; principal; 2021-11-05 11:23)
DX: N20.0 Calculus of kidney (principal)
CPT/HCPCS: 81025; C9803-CS; U0003; U0005

== ENCOUNTER 2021-12-14 07:30 | Emergency (ER) | payer BC, OTHER ==
[2021-12-14 07:41] VITALS: TEMP 98; BMI 17.4
[2021-12-14] MEDS ORDERED: SODIUM CHLORIDE 1,000 ML IV STA ×2 (08:27→10:56)
[2021-12-14] MEDS ORDERED: ACETAMINOPHEN 1000 MG/100 ML BAG IVPB ONE (08:28)
[2021-12-14] MEDS ORDERED: ACETAMINOPHEN INJECTION 100 ML IVPB ONE (08:33)
[2021-12-14 09:00] LABS: EOS % 0.8 % (0-4.5); HEMATOCRIT 28.2 % (32.4-45.2); HEMOGLOBIN 9.1 GM/dL (10.7-15.3); LYMPH % 12.3 % (8-40); MCH 21.9 pg (25.7-33.7); MCHC 32.1 g/dl (32.0-36.0); MEAN CELL VOLUME 68.3 fl (80-96); MEAN PLT VOLUME 8.4 fl (7.5-11.1); MONO % 5.2 % (3.8-10.2); NEUT % 80.7 % (42.8-82.8); PLATELET COUNT 342 10^3/uL (134-434); RBC 4.13 M/mm3 (3.60-5.2); RDW 19.8 % (11.6-15.6); WHITE BLOOD COUNT 7.8 K/mm3 (4.0-10.0)
[2021-12-14 09:10] LABS: CALCIUM 8.6 mg/dL (8.5-10.1)
[2021-12-14 09:11] LABS: ALBUMIN 3.4 g/dl (3.4-5.0); BLOOD UREA NITROGEN 7.6 mg/dL (7-18)
[2021-12-14 09:14] LABS: CREATININE 0.6 mg/dL (0.55-1.3)
[2021-12-14 09:16] LABS: BILIRUBIN,TOTAL 0.2 mg/dL (0.2-1); TOT PROT 6.7 g/dl (6.4-8.2)
[2021-12-14 09:34] LABS: EPI CELLS 10 /uL (0-25.1); HYALINE CASTS 0 /uL (0-3.1); PH,URINE 7.5 (5.0-8.0); URINE APPEARANCE CLEAR; URINE BACTERIA 99 /uL (0-1359); URINE BILIRUBIN NEGATIVE (NEGATIVE); URINE COLOR YELLOW; URINE GLUCOSE (UA) NEGATIVE (NEGATIVE); URINE KETONE NEGATIVE (NEGATIVE); URINE LEUK ESTERASE NEGATIVE (NEGATIVE); URINE NITRITE NEGATIVE (NEGATIVE); URINE PROTEIN NEGATIVE (NEGATIVE); URINE RBC 12 /uL (0-23.9); URINE UROBILINOGEN 0.2 mg/dL (0.2-1.0); URINE WBC 2 /uL (0-25.8)
[2021-12-14 09:51] LABS: HCG,QUALITATIVE URINE Negative
[2021-12-14 10:45] LABS: ANISOCYTOSIS 2+; MACROCYTOSIS 0; OVALOCYTE 1+; TARGET CELLS 1+; TEAR DROP CELLS 1+
[2021-12-14] MEDS ORDERED: KETOROLAC TROMETHAMINE 30 MG/1 ML VIAL IVPUSH ONE (10:54)
[2021-12-14] MEDS ORDERED: ONDANSETRON 4 MG/2 ML VIAL IVPUSH ONE (10:55)
[2021-12-14] MEDS ORDERED: ONDANSETRON 4 MG/2 ML VIAL ONE (11:05)
[2021-12-14] MEDS ORDERED: KETOROLAC TROMETHAMINE 30 MG/1 ML VIAL ONE (11:05)
[2021-12-14 11:51] VITALS: BP 113/65; PULSE 63; RESP 20
== END 2021-12-14 11:59 | disposition home or self-care (01) ==
LOC: JER 07:30
PROC: 3E0333Z Introduction of Anti-inflammatory into Peripheral Vein, Percutaneous Approach (ICD-10-PCS; principal; 2021-12-14)
PROC: 3E0333Z Introduction of Anti-inflammatory into Peripheral Vein, Percutaneous Approach (ICD-10-PCS; 2021-12-14)
PROC: 3E033GC Introduction of Other Therapeutic Substance into Peripheral Vein, Percutaneous Approach (ICD-10-PCS; 2021-12-14)
PROC: 3E0337Z Introduction of Electrolytic and Water Balance Substance into Peripheral Vein, Percutaneous Approach (ICD-10-PCS; 2021-12-14)
PROC: 3E0337Z Introduction of Electrolytic and Water Balance Substance into Peripheral Vein, Percutaneous Approach (ICD-10-PCS; 2021-12-14)
DX: R10.84 Generalized abdominal pain (principal); R11.2 Nausea with vomiting, unspecified
CPT/HCPCS: 36415; 80053; 81003; 84703; 85025; 87086; 99284-25

== ENCOUNTER 2022-03-18 11:54 | Emergency (ER) | payer BC, OTHER ==
[2022-03-18 12:02] VITALS: BP 104/60; PULSE 80; RESP 18; TEMP 98.2; BMI 17.4
[2022-03-18] MEDS ORDERED: ONDANSETRON 4 MG/2 ML VIAL IVPUSH ONE (14:36)
[2022-03-18] MEDS ORDERED: SODIUM CHLORIDE 0.9% 500 ML INFUS.BAG IV ONE (14:36)
[2022-03-18] MEDS ORDERED: ACETAMINOPHEN 1000 MG/100 ML BAG IVPB ONE (14:36)
[2022-03-18] MEDS ORDERED: ONDANSETRON 4 MG/2 ML VIAL ONE (14:57)
[2022-03-18] MEDS ORDERED: ACETAMINOPHEN INJECTION 100 ML IVPB ONE (15:11)
[2022-03-18 15:28] LABS: BASO % 0.8 % (0-2.0); EOS % 0.8 % (0-4.5); HEMATOCRIT 31.7 % (32.4-45.2); HEMOGLOBIN 10.1 GM/dL (10.7-15.3); LYMPH % 13.4 % (8-40); MCH 22.1 pg (25.7-33.7); MCHC 31.9 g/dl (32.0-36.0); MEAN CELL VOLUME 69.2 fl (80-96); MEAN PLT VOLUME 8.4 fl (7.5-11.1); MONO % 8.8 % (3.8-10.2); NEUT % 76.2 % (42.8-82.8); PLATELET COUNT 370 10^3/uL (134-434); RBC 4.58 M/mm3 (3.60-5.2); RDW 19.7 % (11.6-15.6); WHITE BLOOD COUNT 8.4 K/mm3 (4.0-10.0)
[2022-03-18 15:30] LABS: EPI CELLS 14 /uL (0-25.1); HYALINE CASTS 0 /uL (0-3.1); URINE APPEARANCE CLEAR; URINE BILIRUBIN NEGATIVE (NEGATIVE); URINE COLOR DK YELLOW; URINE GLUCOSE (UA) NEGATIVE (NEGATIVE); URINE KETONE NEGATIVE (NEGATIVE); URINE LEUK ESTERASE 1+ (NEGATIVE); URINE NITRITE POSITIVE (NEGATIVE); URINE PROTEIN NEGATIVE (NEGATIVE); URINE RBC 16 /uL (0-23.9); URINE WBC 3 /uL (0-25.8)
[2022-03-18 15:41] LABS: ALBUMIN 3.8 g/dl (3.4-5.0); CALCIUM 9.1 mg/dL (8.5-10.1)
[2022-03-18 15:42] LABS: BLOOD UREA NITROGEN 11.5 mg/dL (7-18)
[2022-03-18 15:45] LABS: CREATININE 0.7 mg/dL (0.55-1.3)
[2022-03-18 15:47] LABS: BILIRUBIN,TOTAL 0.3 mg/dL (0.2-1); TOT PROT 7.3 g/dl (6.4-8.2); URINE BACTERIA 363 /uL (0-1359)
[2022-03-18] MEDS ORDERED: CEFTRIAXONE 1,000 MG in DEXTROSE 5%-WATER - 50 ML IVPB ONE (15:55)
[2022-03-18] MEDS ORDERED: CEFTRIAXONE 1 GM/50 ML BAG ONE (17:16)
== END 2022-03-18 19:08 | disposition home or self-care (01) ==
LOC: JER 11:54
PROC: 3E033GC Introduction of Other Therapeutic Substance into Peripheral Vein, Percutaneous Approach (ICD-10-PCS; principal; 2022-03-18)
DX: N12 Tubulo-interstitial nephritis, not specified as acute or chronic (principal)
CPT/HCPCS: 36415; 74176-TC; 80053; 81003; 84703; 85025; 87086; 99285-25

== ENCOUNTER 2022-04-06 11:06 | Emergency (ER) | payer BC, OTHER ==
[2022-04-06 11:22] VITALS: BP 102/67; RESP 18; TEMP 98.5; BMI 17.4
[2022-04-06] MEDS ORDERED: ACETAMINOPHEN 1000 MG/100 ML BAG IVPB ONE (12:12)
[2022-04-06] MEDS ORDERED: SODIUM CHLORIDE 1,000 ML IV STA (12:12)
[2022-04-06] MEDS ORDERED: ONDANSETRON 4 MG/2 ML VIAL IVPUSH ONE (12:12)
[2022-04-06] MEDS ORDERED: FAMOTIDINE 20 MG/50 ML IVPB 20 MG/50 ML MG IVPB ONE ×2 (12:12→12:18)
[2022-04-06] MEDS ORDERED: ACETAMINOPHEN INJECTION 100 ML IVPB ONE (12:18)
[2022-04-06] MEDS ORDERED: ONDANSETRON 4 MG/2 ML VIAL ONE (12:18)
[2022-04-06 12:32] LABS: EPI CELLS >36 /uL (0-25.1); HCG,QUALITATIVE URINE Negative; HYALINE CASTS 0 /uL (0-3.1); PH,URINE 5.5 (5.0-8.0); URINE APPEARANCE CLEAR; URINE BACTERIA 311 /uL (0-1359); URINE BILIRUBIN NEGATIVE (NEGATIVE); URINE COLOR YELLOW; URINE GLUCOSE (UA) NEGATIVE (NEGATIVE); URINE KETONE TRACE (NEGATIVE); URINE LEUK ESTERASE NEGATIVE (NEGATIVE); URINE NITRITE NEGATIVE (NEGATIVE); URINE PROTEIN NEGATIVE (NEGATIVE); URINE RBC 39 /uL (0-23.9); URINE UROBILINOGEN 0.2 mg/dL (0.2-1.0); URINE WBC 13 /uL (0-25.8)
[2022-04-06 12:48] LABS: BASO % 0.6 % (0-2.0); EOS % 1.6 % (0-4.5); HEMATOCRIT 31.7 % (32.4-45.2); HEMOGLOBIN 9.9 GM/dL (10.7-15.3); LYMPH % 13.8 % (8-40); MCH 21.8 pg (25.7-33.7); MCHC 31.1 g/dl (32.0-36.0); MEAN CELL VOLUME 70.1 fl (80-96); MEAN PLT VOLUME 8.8 fl (7.5-11.1); MONO % 8.2 % (3.8-10.2); NEUT % 75.8 % (42.8-82.8); PLATELET COUNT 402 10^3/uL (134-434); RBC 4.53 M/mm3 (3.60-5.2); RDW 19.6 % (11.6-15.6)
[2022-04-06 13:06] LABS: CALCIUM 8.8 mg/dL (8.5-10.1)
[2022-04-06 13:07] LABS: ALBUMIN 3.5 g/dl (3.4-5.0); BLOOD UREA NITROGEN 11.2 mg/dL (7-18)
[2022-04-06 13:10] LABS: CREATININE 0.7 mg/dL (0.55-1.3)
[2022-04-06 13:11] LABS: BILIRUBIN,TOTAL 0.5 mg/dL (0.2-1); TOT PROT 6.8 g/dl (6.4-8.2)
[2022-04-06 13:19] LABS: ANISOCYTOSIS 2+; MACROCYTOSIS 0
[2022-04-06 14:59] VITALS: PULSE 76
== END 2022-04-06 15:19 | disposition home or self-care (01) ==
LOC: JER 11:06
PROC: 3E0333Z Introduction of Anti-inflammatory into Peripheral Vein, Percutaneous Approach (ICD-10-PCS; principal; 2022-04-06)
PROC: 3E033GC Introduction of Other Therapeutic Substance into Peripheral Vein, Percutaneous Approach (ICD-10-PCS; 2022-04-06)
PROC: 3E033GC Introduction of Other Therapeutic Substance into Peripheral Vein, Percutaneous Approach (ICD-10-PCS; 2022-04-06)
PROC: 3E0337Z Introduction of Electrolytic and Water Balance Substance into Peripheral Vein, Percutaneous Approach (ICD-10-PCS; 2022-04-06)
DX: K29.70 Gastritis, unspecified, without bleeding (principal)
CPT/HCPCS: 36415; 76705-TC; 80053; 81003; 83690; 84703; 85025; 87086; 99284-25

== ENCOUNTER 2022-04-18 21:19 | Emergency (ER) | payer BC, OTHER ==
[2022-04-18 21:25] VITALS: BP 103/69; PULSE 88; RESP 17; TEMP 98.5; BMI 17.4
[2022-04-18] MEDS ORDERED: SODIUM CHLORIDE 0.9% 500 ML INFUS.BAG IV ONE (21:54)
[2022-04-18] MEDS ORDERED: ONDANSETRON 4 MG/2 ML VIAL IVPUSH ONE (21:56)
[2022-04-18] MEDS ORDERED: MAG HYDROX/AL HYDROX/SIMETH 30 ML UNIT-DOSE CUP PO ONE (21:56)
[2022-04-18] MEDS ORDERED: FAMOTIDINE 20 MG/50 ML IVPB 20 MG/50 ML MG IVPB ONE ×2 (21:56→22:16)
[2022-04-18] MEDS ORDERED: ACETAMINOPHEN 1000 MG/100 ML BAG IVPB ONE (21:56)
[2022-04-18] MEDS ORDERED: ACETAMINOPHEN INJECTION 100 ML IVPB ONE (22:16)
[2022-04-18] MEDS ORDERED: MAG HYDROX/AL HYDROX/SIMETH 30 ML UNIT-DOSE CUP ONE (22:16)
[2022-04-18] MEDS ORDERED: ONDANSETRON 4 MG/2 ML VIAL ONE (22:16)
[2022-04-18 23:44] LABS: BASO % 0.9 % (0-2.0); EOS % 1.5 % (0-4.5); HEMATOCRIT 32.6 % (32.4-45.2); HEMOGLOBIN 10.4 GM/dL (10.7-15.3); MCH 21.8 pg (25.7-33.7); MCHC 31.9 g/dl (32.0-36.0); MEAN CELL VOLUME 68.4 fl (80-96); MEAN PLT VOLUME 8.1 fl (7.5-11.1); MONO % 7.5 % (3.8-10.2); NEUT % 69.1 % (42.8-82.8); PLATELET COUNT 365 10^3/uL (134-434); RBC 4.76 M/mm3 (3.60-5.2); RDW 18.9 % (11.6-15.6)
[2022-04-19 00:04] LABS: CALCIUM 9.1 mg/dL (8.5-10.1)
[2022-04-19 00:05] LABS: ALBUMIN 3.9 g/dl (3.4-5.0); BLOOD UREA NITROGEN 11.1 mg/dL (7-18)
[2022-04-19 00:08] LABS: CREATININE 0.7 mg/dL (0.55-1.3)
[2022-04-19 00:09] LABS: BILIRUBIN,TOTAL 0.4 mg/dL (0.2-1); TOT PROT 7.4 g/dl (6.4-8.2)
[2022-04-19 00:12] LABS: PH,URINE 7.5 (5.0-8.0); URINE APPEARANCE CLEAR; URINE BILIRUBIN NEGATIVE (NEGATIVE); URINE COLOR YELLOW; URINE GLUCOSE (UA) NEGATIVE (NEGATIVE); URINE KETONE NEGATIVE (NEGATIVE); URINE LEUK ESTERASE NEGATIVE (NEGATIVE); URINE NITRITE NEGATIVE (NEGATIVE); URINE PROTEIN NEGATIVE (NEGATIVE); URINE UROBILINOGEN 0.2 mg/dL (0.2-1.0)
[2022-04-19 01:00] LABS: HCG,QUALITATIVE URINE Negative
[2022-04-19 04:45] LABS: ANISOCYTOSIS 2+; MACROCYTOSIS 0; OVALOCYTE 2+
== END 2022-04-19 00:43 | disposition home or self-care (01) ==
LOC: JER 21:19
PROC: 3E033GC Introduction of Other Therapeutic Substance into Peripheral Vein, Percutaneous Approach (ICD-10-PCS; principal; 2022-04-18)
DX: K29.70 Gastritis, unspecified, without bleeding (principal)
CPT/HCPCS: 36415; 76700-TC; 80053; 81003; 83605; 83690; 84703; 85025; 99284-25

== ENCOUNTER 2022-11-21 10:22 | Emergency (ER) | payer BC, OTHER ==
[2022-11-21 10:37] VITALS: BP 112/70; PULSE 108; RESP 18; TEMP 98.3; BMI 16.8
== END 2022-11-21 11:45 | disposition home or self-care (01) ==
LOC: JERFT 10:22
DX: S61.236A Puncture wound without foreign body of right little finger without damage to nail, initial encounter (principal); W54.0XXA Bitten by dog, initial encounter
CPT/HCPCS: 99283-25

== ENCOUNTER 2023-04-02 18:33 | Emergency (ER) | payer BC, OTHER ==
[2023-04-02 19:00] VITALS: BP 123/51; PULSE 88; RESP 18; TEMP 98.2; BMI 17.2
[2023-04-02 20:49] LABS: EPI CELLS 18 /uL (0-25.1); HYALINE CASTS 0 /uL (0-3.1); URINE APPEARANCE CLEAR; URINE BACTERIA 586 /uL (0-1359); URINE BILIRUBIN NEGATIVE (NEGATIVE); URINE COLOR YELLOW; URINE GLUCOSE (UA) NEGATIVE (NEGATIVE); URINE KETONE 1+ (NEGATIVE); URINE LEUK ESTERASE NEGATIVE (NEGATIVE); URINE NITRITE NEGATIVE (NEGATIVE); URINE PROTEIN NEGATIVE (NEGATIVE); URINE RBC 41 /uL (0-23.9); URINE UROBILINOGEN 0.2 mg/dL (0.2-1.0); URINE WBC 6 /uL (0-25.8)
[2023-04-02 21:03] LABS: HCG,QUALITATIVE URINE Negative
== END 2023-04-02 21:40 | disposition home or self-care (01) ==
LOC: JER 18:33
DX: N30.90 Cystitis, unspecified without hematuria (principal); R30.0 Dysuria; R35.0 Frequency of micturition
CPT/HCPCS: 36415; 81003; 84703; 87086; 87491; 87591; 87661; 99283-25

== ENCOUNTER 2023-04-20 10:43 | Emergency (ER) | payer BC, OTHER ==
[2023-04-20 10:48] VITALS: BP 107/65; PULSE 76; RESP 18; TEMP 98.4; BMI 17.4
== END 2023-04-20 12:38 | disposition home or self-care (01) ==
LOC: JERFT 10:43
DX: R05.9 Cough, unspecified (principal); R09.81 Nasal congestion; U07.1 COVID-19
CPT/HCPCS: 0241U-QW; 99283-25

== ENCOUNTER 2023-05-02 23:27 | Emergency (ER) | payer OTHER ==
[2023-05-02 23:33] VITALS: BP 98/66; PULSE 102; RESP 18; TEMP 97.6; BMI 17.2
[2023-05-03] MEDS ORDERED: KETOROLAC TROMETHAMINE 15 MG/ML VIAL IM ONE (03:06)
[2023-05-03] MEDS ORDERED: KETOROLAC TROMETHAMINE 15 MG/ML VIAL ONE (03:07)
== END 2023-05-03 03:12 | disposition home or self-care (01) ==
LOC: JER 23:27
PROC: 3E0233Z Introduction of Anti-inflammatory into Muscle, Percutaneous Approach (ICD-10-PCS; principal; 2023-05-03)
PROC: 2W3DX1Z Immobilization of Left Lower Arm using Splint (ICD-10-PCS; 2023-05-03)
DX: S59.902A Unspecified injury of left elbow, initial encounter (principal); M25.522 Pain in left elbow; M25.422 Effusion, left elbow; W10.8XXA Fall (on) (from) other stairs and steps, initial encounter; Y93.01 Activity, walking, marching and hiking; Y92.009 Unspecified place in unspecified non-institutional (private) residence as the place of occurrence of the external cause
CPT/HCPCS: 73070-TC-LT-FY; 99284-25

== ENCOUNTER 2023-05-06 14:21 | Emergency (ER) | payer OTHER ==
[2023-05-06 14:51] VITALS: BP 106/54; PULSE 58; RESP 18; TEMP 98.2; BMI 17.2
[2023-05-06] MEDS ORDERED: KETOROLAC TROMETHAMINE 30 MG/1 ML VIAL IM ONE (15:32)
[2023-05-06] MEDS ORDERED: KETOROLAC TROMETHAMINE 30 MG/1 ML VIAL ONE (15:34)
== END 2023-05-06 17:33 | disposition home or self-care (01) ==
LOC: JERFT 14:21
PROC: 3E0233Z Introduction of Anti-inflammatory into Muscle, Percutaneous Approach (ICD-10-PCS; principal; 2023-05-06)
DX: S50.02XA Contusion of left elbow, initial encounter (principal); W01.0XXA Fall on same level from slipping, tripping and stumbling without subsequent striking against object, initial encounter; Y92.9 Unspecified place or not applicable
CPT/HCPCS: 73070-TC-LT-FY; 96372; 99284-25

== ENCOUNTER 2023-09-26 00:01 | Emergency (ER) | payer OTHER ==
[2023-09-26 00:08] VITALS: BP 102/76; RESP 20; TEMP 98.8; BMI 17.4
[2023-09-26] MEDS ORDERED: ACETAMINOPHEN 500 MG TABLET (FP) PO ONE (00:47)
[2023-09-26] MEDS ORDERED: ACETAMINOPHEN 325 MG TABLET (FP) ONE (00:58)
[2023-09-26] MEDS: ACETAMINOPHEN 325 MG TABLET (FP) PO ONE (01:59)
[2023-09-26 02:41] VITALS: PULSE 88
== END 2023-09-26 03:18 | disposition home or self-care (01) ==
LOC: JER 00:01
DX: S86.912A Strain of unspecified muscle(s) and tendon(s) at lower leg level, left leg, initial encounter (principal); X58.XXXA Exposure to other specified factors, initial encounter
CPT/HCPCS: 73562-TC-LT-FY; 73610-TC-LT-FY; 73630-TC-LT; 93970-TC; 99284-25

== ENCOUNTER 2023-12-19 10:33 | Emergency (ER) | payer OTHER ==
[2023-12-19 10:45] VITALS: RESP 18; BMI 16.9
[2023-12-19] MEDS ORDERED: ACETAMINOPHEN INJECTION 100 ML ONE (12:57)
[2023-12-19] MEDS ORDERED: MAG HYDROX/AL HYDROX/SIMETH 30 ML UNIT-DOSE CUP ONE (12:57)
[2023-12-19] MEDS ORDERED: ONDANSETRON 4 MG/2 ML VIAL ONE (12:58)
[2023-12-19] MEDS ORDERED: FAMOTIDINE 20 MG/50 ML IVPB 20 MG/50 ML MG IVPB ONE (12:58)
[2023-12-19 13:01] LABS: EPI CELLS 4 /uL (0-25.1); HCG,QUALITATIVE URINE Negative; HYALINE CASTS 1 /uL (0-3.1); PH,URINE 7.5 (5.0-8.0); URINE APPEARANCE CLEAR; URINE BACTERIA 1615 /uL (0-1359); URINE BILIRUBIN NEGATIVE (NEGATIVE); URINE COLOR YELLOW; URINE GLUCOSE (UA) NEGATIVE (NEGATIVE); URINE KETONE NEGATIVE (NEGATIVE); URINE LEUK ESTERASE 2+ (NEGATIVE); URINE NITRITE NEGATIVE (NEGATIVE); URINE PROTEIN NEGATIVE (NEGATIVE); URINE RBC 156 /uL (0-23.9); URINE UROBILINOGEN 0.2 mg/dL (0.2-1.0); URINE WBC 319 /uL (0-25.8)
[2023-12-19 13:18] LABS: HEMATOCRIT 27.5 % (32.4-45.2); HEMOGLOBIN 8.7 GM/dL (10.7-15.3); MCH 19.7 pg (25.7-33.7); MCHC 31.5 g/dl (32.0-36.0); MEAN CELL VOLUME 62.8 fl (80-96); MEAN PLT VOLUME 8.7 fl (7.5-11.1); PLATELET COUNT 431 10^3/uL (134-434); RBC 4.38 M/mm3 (3.60-5.2); RDW 20.7 % (11.6-15.6); WHITE BLOOD COUNT 15.6 K/mm3 (4.0-10.0)
[2023-12-19] MEDS: ACETAMINOPHEN 1000 MG/100 ML BAG IVPB ONE (13:19)
[2023-12-19] MEDS: MAG HYDROX/AL HYDROX/SIMETH 30 ML UNIT-DOSE CUP PO ONE (13:19)
[2023-12-19] MEDS: SODIUM CHLORIDE 1,000 ML IV STA (13:19)
[2023-12-19] MEDS: FAMOTIDINE 20 MG/50 ML IVPB 20 MG/50 ML MG IVPB ONE (13:20)
[2023-12-19] MEDS: ONDANSETRON 4 MG/2 ML VIAL IVPB ONE (13:20)
[2023-12-19 13:37] LABS: BLOOD UREA NITROGEN 10.6 mg/dL (7-18); CALCIUM 9.4 mg/dL (8.5-10.1)
[2023-12-19 13:40] LABS: CREATININE 0.6 mg/dL (0.55-1.3)
[2023-12-19 13:42] LABS: BILIRUBIN,TOTAL 0.4 mg/dL (0.2-1); TOT PROT 7.4 g/dl (6.4-8.2)
[2023-12-19] MEDS ORDERED: CEFTRIAXONE 1 GM/50 ML BAG ONE (14:00)
[2023-12-19 14:09] LABS: ANISOCYTOSIS 2+; MACROCYTOSIS 0
[2023-12-19] MEDS: CEFTRIAXONE 1 GM in DEXTROSE 5%-WATER - 100 ML IVPB ONE (15:11)
[2023-12-19 16:45] VITALS: BP 107/63; PULSE 76; TEMP 97.9
[2023-12-20 00:24] LABS: HIV INTERPRETATION NEGATIVE (NEGATIVE)
== END 2023-12-19 16:54 | disposition home or self-care (01) ==
LOC: JER 10:33
PROC: 3E03329 Introduction of Other Anti-infective into Peripheral Vein, Percutaneous Approach (ICD-10-PCS; principal; 2023-12-19)
PROC: 3E033GC Introduction of Other Therapeutic Substance into Peripheral Vein, Percutaneous Approach (ICD-10-PCS; 2023-12-19)
PROC: 3E033NZ Introduction of Analgesics, Hypnotics, Sedatives into Peripheral Vein, Percutaneous Approach (ICD-10-PCS; 2023-12-19)
PROC: 3E033GC Introduction of Other Therapeutic Substance into Peripheral Vein, Percutaneous Approach (ICD-10-PCS; 2023-12-19)
DX: N39.0 Urinary tract infection, site not specified (principal); R11.2 Nausea with vomiting, unspecified; R19.7 Diarrhea, unspecified; R10.30 Lower abdominal pain, unspecified
CPT/HCPCS: 36415; 74176-TC; 80053; 81003; 83690; 84703; 85025; 86803; 87086; 87186; 87389; 99285-25; J0131

== ENCOUNTER 2024-02-05 09:41 | Emergency (ER) | payer OTHER ==
[2024-02-05 09:57] VITALS: BP 113/69; PULSE 100; RESP 20; TEMP 99; BMI 17.2
[2024-02-05] MEDS ORDERED: ALBUTEROL SO4 2.5/IPRATROPIUM 0.5 INH SOL 3 ML VIAL.NEB. NEB ONE (10:34)
[2024-02-05] MEDS: ALBUTEROL SO4 2.5/IPRATROPIUM 0.5 INH SOL 3 ML VIAL.NEB. NEB ONE (10:36)
[2024-02-05 11:01] LABS: EPI CELLS >36 /uL (0-25.1); HYALINE CASTS 2 /uL (0-3.1); PH,URINE 6.5 (5.0-8.0); URINE APPEARANCE CLOUDY; URINE BACTERIA 1145 /uL (0-1359); URINE BILIRUBIN NEGATIVE (NEGATIVE); URINE COLOR YELLOW; URINE GLUCOSE (UA) NEGATIVE (NEGATIVE); URINE KETONE TRACE (NEGATIVE); URINE LEUK ESTERASE 1+ (NEGATIVE); URINE NITRITE NEGATIVE (NEGATIVE); URINE PROTEIN TRACE (NEGATIVE); URINE RBC 102 /uL (0-23.9); URINE WBC 55 /uL (0-25.8)
== END 2024-02-05 13:25 | disposition home or self-care (01) ==
LOC: JERFT 09:41
PROC: 3E0F7GC Introduction of Other Therapeutic Substance into Respiratory Tract, Via Natural or Artificial Opening (ICD-10-PCS; principal; 2024-02-05)
DX: R09.81 Nasal congestion (principal); R05.9 Cough, unspecified; M54.50 Low back pain, unspecified; R61 Generalized hyperhidrosis; M79.10 Myalgia, unspecified site; N39.0 Urinary tract infection, site not specified; J98.01 Acute bronchospasm; Z20.822 Contact with and (suspected) exposure to COVID-19
CPT/HCPCS: 0241U-QW; 71046-TC-FY; 81003; 84703; 87086; 99284-25

== ENCOUNTER 2024-03-21 14:55 | Observation (INO) | payer OTHER ==
[2024-03-21] MEDS ORDERED: ALBUTEROL SO4 2.5/IPRATROPIUM 0.5 INH SOL 3 ML VIAL.NEB. NEB ONE ×2 (15:57→17:37)
[2024-03-21] MEDS ORDERED: DEXAMETHASONE SOD PHOSPHATE 10 MG/1 ML VIAL ONE (15:58)
[2024-03-21] MEDS: ALBUTEROL SO4 2.5/IPRATROPIUM 0.5 INH SOL 3 ML VIAL.NEB. NEB ONE ×2 (16:07→17:51)
[2024-03-21] MEDS: DEXAMETHASONE SOD PHOSPHATE 10 MG/1 ML VIAL IM ONE (16:07)
[2024-03-21] MEDS ORDERED: KETOROLAC TROMETHAMINE 30 MG/1 ML VIAL ONE (16:33)
[2024-03-21] MEDS: KETOROLAC TROMETHAMINE 30 MG/1 ML VIAL IM ONE (16:37)
[2024-03-21] MEDS ORDERED: MAGNESIUM SULFATE IN WATER 2 GM/50 ML IVPB IVPB ONE (17:44)
[2024-03-21] MEDS: MAGNESIUM SULFATE IN WATER 2 GM/50 ML IVPB IVPB ONE (17:57)
[2024-03-21 20:03] LABS: HEMATOCRIT 30.5 % (32.4-45.2); HEMOGLOBIN 9.2 GM/dL (10.7-15.3); MCHC 30.2 g/dl (32.0-36.0); MEAN CELL VOLUME 63.3 fl (80-96); MEAN PLT VOLUME 8.8 fl (7.5-11.1); PLATELET COUNT 471 10^3/uL (134-434); RBC 4.83 M/mm3 (3.60-5.2); RDW 22.6 % (11.6-15.6); WHITE BLOOD COUNT 9.8 K/mm3 (4.0-10.0)
[2024-03-21 20:06] LABS: MCH 19.1 pg (25.7-33.7)
[2024-03-21 20:15] LABS: CALCIUM 9.5 mg/dL (8.5-10.1); POTASSIUM 3.8 mmol/L (3.5-5.1)
[2024-03-21 20:16] LABS: ALBUMIN 4.2 g/dl (3.4-5.0); BLOOD UREA NITROGEN 10.4 mg/dL (7-18)
[2024-03-21 20:19] LABS: CREATININE 0.8 mg/dL (0.55-1.3)
[2024-03-21 20:21] LABS: BILIRUBIN,TOTAL 0.4 mg/dL (0.2-1); TOT PROT 7.9 g/dl (6.4-8.2)
[2024-03-21 20:35] LABS: ANISOCYTOSIS 2+; MACROCYTOSIS 0; OVALOCYTE 1+; TARGET CELLS 1+
[2024-03-22] MEDS: ACETAMINOPHEN 1000 MG/100 ML BAG IVPB ONE (01:40)
[2024-03-22] MEDS: BUDESONIDE/FORMETEROL FUMARATE 160/4.5 mcg INHALER IH SCH (02:02)
[2024-03-22 02:16] VITALS: BMI 16.5
[2024-03-22] MEDS: methylPREDNISolone NA SUCC 40 MG/1 ML VIAL IVPUSH SCH (02:45)
[2024-03-22] MEDS: ACETAMINOPHEN 325 MG TABLET (FP) PO PRN (07:03)
[2024-03-22] MEDS ORDERED: ALBUTEROL SO4 2.5/IPRATROPIUM 0.5 INH SOL 3 ML VIAL.NEB. NEB PRN (07:12)
[2024-03-22] MEDS: ALBUTEROL SO4 2.5/IPRATROPIUM 0.5 INH SOL 3 ML VIAL.NEB. NEB SCH (07:35)
[2024-03-22 08:32] LABS: HEMATOCRIT 30.2 % (32.4-45.2); HEMOGLOBIN 9.3 GM/dL (10.7-15.3); MEAN CELL VOLUME 62.9 fl (80-96); PLATELET COUNT 459 10^3/uL (134-434); RBC 4.81 M/mm3 (3.60-5.2); RDW 22.5 % (11.6-15.6); WHITE BLOOD COUNT 5.7 K/mm3 (4.0-10.0)
[2024-03-22 08:38] LABS: MCH 19.5 pg (25.7-33.7)
[2024-03-22 08:58] LABS: POTASSIUM 4.4 mmol/L (3.5-5.1)
[2024-03-22 09:00] LABS: CALCIUM 9.9 mg/dL (8.5-10.1); MAGNESIUM 2.5 mg/dL (1.8-2.4)
[2024-03-22 09:01] LABS: ALBUMIN 4.1 g/dl (3.4-5.0); BLOOD UREA NITROGEN 12.9 mg/dL (7-18)
[2024-03-22 09:03] LABS: CREATININE 0.6 mg/dL (0.55-1.3)
[2024-03-22 09:06] LABS: ANISOCYTOSIS 3+; BILIRUBIN,TOTAL 0.4 mg/dL (0.2-1); MACROCYTOSIS 0; TOT PROT 7.8 g/dl (6.4-8.2)
[2024-03-22] MEDS: predniSONE 20 MG TABLET (UD) PO SCH (10:42)
[2024-03-22] MEDS: ENOXAPARIN NA (PORCINE) 40 MG/0.4 ML DISP.SYRIN SQ SCH (10:44)
[2024-03-22 13:19] VITALS: BP 112/52; PULSE 81; RESP 14; TEMP 98.1
== END 2024-03-22 13:53 | disposition home or self-care (01) ==
LOC: JER 14:55 → JERBED 21:06 → J7W 03-22 01:16
PROVIDERS: ADMIT Internal Medicine; ATTEND Internal Medicine
PROC: 3E033GC Introduction of Other Therapeutic Substance into Peripheral Vein, Percutaneous Approach (ICD-10-PCS; principal; 2024-03-21)
PROC: 3E033NZ Introduction of Analgesics, Hypnotics, Sedatives into Peripheral Vein, Percutaneous Approach (ICD-10-PCS; 2024-03-21)
PROC: 3E023GC Introduction of Other Therapeutic Substance into Muscle, Percutaneous Approach (ICD-10-PCS; 2024-03-21)
PROC: 3E013GC Introduction of Other Therapeutic Substance into Subcutaneous Tissue, Percutaneous Approach (ICD-10-PCS; 2024-03-21)
PROC: 3E0F7SF Introduction of Other Gas into Respiratory Tract, Via Natural or Artificial Opening (ICD-10-PCS; 2024-03-21)
DX: J45.901 Unspecified asthma with (acute) exacerbation (principal); D50.8 Other iron deficiency anemias; D75.839 Thrombocytosis, unspecified; Z87.442 Personal history of urinary calculi
CPT/HCPCS: 0241U-QW; 36415; 71046-TC-FY; 80053; 82728; 83540; 83550; 83735; 84100; 84703; 85025; 94640; 96365; 96372; 96375; 99285-25; G0378; J0131; J1100

== ENCOUNTER 2024-04-22 12:37 | Emergency (ER) | payer OTHER ==
[2024-04-22 12:44] VITALS: BP 112/70; PULSE 78; RESP 18; TEMP 98.2; BMI 17.2
[2024-04-22] MEDS ORDERED: ACETAMINOPHEN INJECTION 100 ML ONE (13:15)
[2024-04-22] MEDS: SODIUM CHLORIDE 0.9% 500 ML INFUS.BAG IV ONE (13:38)
[2024-04-22] MEDS: ACETAMINOPHEN 1000 MG/100 ML BAG IVPB ONE (13:38)
[2024-04-22 13:44] LABS: BASO % 1.2 % (0-2.0); EOS % 0.6 % (0-4.5); HEMATOCRIT 30.6 % (32.4-45.2); HEMOGLOBIN 9.1 GM/dL (10.7-15.3); LYMPH % 25.5 % (8-40); MCHC 29.9 g/dl (32.0-36.0); MEAN CELL VOLUME 64.2 fl (80-96); MEAN PLT VOLUME 8.7 fl (7.5-11.1); MONO % 8.3 % (3.8-10.2); NEUT % 64.4 % (42.8-82.8); PLATELET COUNT 418 10^3/uL (134-434); RBC 4.77 M/mm3 (3.60-5.2); RDW 22.4 % (11.6-15.6); WHITE BLOOD COUNT 4.5 K/mm3 (4.0-10.0)
[2024-04-22 13:45] LABS: EPI CELLS 21 /uL (0-25.1); HYALINE CASTS 0 /uL (0-3.1); PH,URINE 6.5 (5.0-8.0); URINE APPEARANCE CLEAR; URINE BACTERIA 983 /uL (0-1359); URINE BILIRUBIN NEGATIVE (NEGATIVE); URINE COLOR YELLOW; URINE GLUCOSE (UA) NEGATIVE (NEGATIVE); URINE KETONE TRACE (NEGATIVE); URINE LEUK ESTERASE TRACE (NEGATIVE); URINE NITRITE NEGATIVE (NEGATIVE); URINE PROTEIN NEGATIVE (NEGATIVE); URINE RBC 23 /uL (0-23.9); URINE UROBILINOGEN 0.2 mg/dL (0.2-1.0); URINE WBC 38 /uL (0-25.8)
[2024-04-22 13:46] LABS: MCH 19.2 pg (25.7-33.7)
[2024-04-22 14:02] LABS: POTASSIUM 4.2 mmol/L (3.5-5.1)
[2024-04-22 14:03] LABS: CALCIUM 9.4 mg/dL (8.5-10.1)
[2024-04-22 14:04] LABS: BLOOD UREA NITROGEN 10.3 mg/dL (7-18)
[2024-04-22 14:07] LABS: CREATININE 0.7 mg/dL (0.55-1.3)
[2024-04-22] MEDS ORDERED: KETOROLAC TROMETHAMINE 30 MG/1 ML VIAL IVPUSH ONE (14:19)
[2024-04-22] MEDS ORDERED: KETOROLAC TROMETHAMINE 30 MG/1 ML VIAL ONE (14:26)
[2024-04-22 14:46] LABS: ANISOCYTOSIS 3+; MACROCYTOSIS 1+; OVALOCYTE 1+
[2024-04-22 14:59] LABS: HIV INTERPRETATION NEGATIVE (NEGATIVE)
== END 2024-04-22 16:41 | disposition home or self-care (01) ==
LOC: JER 12:37
PROC: 3E033NZ Introduction of Analgesics, Hypnotics, Sedatives into Peripheral Vein, Percutaneous Approach (ICD-10-PCS; principal; 2024-04-22)
DX: R35.0 Frequency of micturition (principal); R10.9 Unspecified abdominal pain
CPT/HCPCS: 36415; 74176-TC; 80048; 81003; 84703; 85025; 86803; 87086; 87389; 99284-25; J0131